=== PATIENT | male | born 1950 | race Asian ===

== ENCOUNTER 2016-12-18 12:12 | Emergency (ER) | payer MEDICARE, OTHER ==
[~2016-12-18] VITALS: Wt 90.2 kg
[~2016-12-18 12:12] MED LIST: ADV50050 INHALATION; ALBU18HF IH; ASPI-664 PO; AZIT250T94 PO; LEVO137T3 PO; LOSA25TA5 PO; MED4DP PO
[2016-12-18] MEDS ORDERED: LOSA25TA5 PO (13:26)
[2016-12-18] MEDS ORDERED: LEVO150T67 PO (13:26)
[2016-12-18] MEDS ORDERED: ASPI81TA3 PO (13:27)
[2016-12-18] MEDS ORDERED: TIOT18CA INHALATION (13:28)
[2016-12-18] MEDS ORDERED: NICARDipine HCL 30 MG CAPSULE PO ONE ×2 (13:30→15:00)
[2016-12-18] MEDS ORDERED: HYDROCODONE/APAP (10/325) TAB PO ONE (13:30)
--- NOTE | 2016-12-18 14:06 | RADRPT ---
PROCEDURE: CT Brain without. CLINICAL INDICATION: Headache. TECHNIQUE: A CT of the brain was performed on multidetector high-resolution CT scanner utilizing a xial sections from the skull base through the vertex without contrast. The scan was reviewed in sof t tissue brain and high frequency resolution bone algorithm windows. Images were reviewed on a high -resolution PACS workstation. One or more the following does reduction techniques were utilized: Aut omated exposure control, adjustment of the mA/ or kV according to patient's size, or use of iterativ e reconstruction technique. The exam CTDI = 43.77 mGy and the DLP = 630.2 mGy-cm. COMPARISON: None available. FINDINGS: The ventricles and sulci are mildly prominent indicative of volume loss. here is no intracranial hem orrhage, mass effect or midline shift. No abnormal intra-axial or extra-axial fluid collections are seen. The tolbert/white matter differentiation is preserved. There is prominent retrocerebellar CSF sp chace which may represent bijal cisterna magna versus arachnoid cyst. There are mild scattered foci of hypoattenuation in the white matter, which are nonspecific in etiol ogy but likely reflect chronic small vessel ischemic changes. There are mild intracranial vascular calcifications consistent with atherosclerosis. The visualized paranasal sinuses demonstrate mild to moderate mucosal thickening with small air-fluid levels in bilateral frontal sinuses. Partial opaci fication of the partially visualized right maxillary sinus is noted to The mastoid air cells are ess entially clear. IMPRESSION: 1. No acute intracranial hemorrhage, transcortical infarction or mass effect. 2. Mild intracranial atherosclerosis and chronic small vessel ischemic changes. 3. Mild generalized cerebral and cerebellar volume loss. 4. Mild to moderate paranasal sinus disease with associated air fluid levels, correlate for acute s inusitis. 5. retrocerebellar CSF space which may represent bijal cisterna magna versus arachnoid cyst. RPTAT: HH .Laney Pompa MD, MD Date Time Electronically viewed and signed by .Laney Pompa MD, MD on 12/18/2016 14:05 .N/
[2016-12-18] MEDS ORDERED: AMLO-218 PO (16:12)
[2016-12-18] MEDS ORDERED: LOSA50TA6 PO (16:12)
--- NOTE | 2016-12-18 16:16 | ERD ---
ER Documentation Chief Complaint Date/Time DATE: 12/18/16 TIME: 16:13 Chief Complaint HEADACHE WITH HIGH BP FOR 3 DAYS. NO NEURO DEFICIT. NO CP OR SOB HPI This is 66-year-old male who is here for headache with hypertension. The patient started new chemotherapy drug that has side effects of elevated blood pressure and headache. Headache is located in the occipital and vertex region. He has no focal neurological complaints no speech changes no visual change. Does not feel dizzy or have any blurry vision. He takes losartan hydrochlorothiazide, combination ROS All systems reviewed and are negative except as per history of present illness. Medications Home Meds Active Scripts Losartan Potassium* (Losartan Potassium*) 50 Mg Tablet, 50 MG PO DAILY, #30 TAB Prov:BRISA ARMANDO. DO 12/18/16 Amlodipine Besylate* (Norvasc*) 10 Mg Tablet, 10 MG PO DAILY, #30 TAB Prov:BRISA RAMANDO A. DO 12/18/16 Reported Medications Tiotropium [place]* (Spiriva*) 18 Mcg Cap.w.dev, 1 CAP INHALATION DAILY, #30 CAP 12/18/16 Aspirin* (Aspirin* Chew) 81 Mg Tab.chew, 81 MG PO DAILY, TAB.CHEW 12/18/16 Losartan Potassium* (Losartan Potassium*) 25 Mg Tablet, 25 MG PO DAILY, TAB 12/18/16 Levothyroxine Sodium* (Levothyroxine Sodium*) 150 Mcg Tablet, 150 MCG PO BEFORE BREAKFAST, #30 TAB 12/18/16 Salmeterol Xinaf-Fluticasone* (Advair*) 500/50 Diskus Inhaler, 1 INH INHALATION BID, #1 INHALER 09/22/15 Albuterol Sulfate* (Ventolin HFA*) 18 Gm Hfa.aer.ad, 2 PUFF IH Q4H Y for WHEEZING AND RESP DISTRESS, EA 02/07/15 Discontinued Reported Medications Levothyroxine Sodium* (Levothyroxine Sodium*) 137 Mcg Tablet, 137 MCG PO BEFORE BREAKFAST, #30 TAB 09/22/15 Aspirin* (Aspirin* EC) 81 Mg Tablet.dr, 81 MG PO DAILY, TAB 09/22/14 Discontinued Scripts Methylprednisolone* (Medrol* DOSE PACK) 4 Mg/Dose-Pack Tab.ds.pk, 4 MG PO . DIRECTED, #1 PACKET Prov:JULIO CESAR REINA 09/24/15 Azithromycin* (Zithromax*) 250 Mg Tab, 250 MG PO DAILY for 4 Days, TAB Prov:JULIO CESAR REINA 09/24/15 Allergies Allergies: Coded Allergies: No Known Allergy (Unverified , 12/18/16) PMhx/Soc History of Surgery: Yes (thyroidectomy 02/2015) Anesthesia Reaction: No Hx Neurological Disorder: No Hx Respiratory Disorders: Yes (asthma, copd) Hx Cardiac Disorders: Yes (HTN) Hx Psychiatric Problems: No Hx Miscellaneous Medical Probl: Yes (radiation therapy ff. thyroidectomy 03/20) Hx Alcohol Use: No Hx Substance Use: No Hx Tobacco Use: Yes (1 pack a day x 50 yrs, ) Smoking Status: Never smoker FmHx Family History: No coronary disease Physical Exam Vitals Vital Signs Date Time Temp Pulse Resp B/P Pulse Ox O2 Delivery O2 Flow Rate FiO2 12/18/16 12:15 98.9 62 20 213/98 99 Physical Exam Const: Well-developed, well-nourished Head: Atraumatic, normocephalic Eyes: Normal Conjunctiva, PERRLA, EOMI, normal sclera, no nystagmus ENT: Normal External Ears, Nose and Mouth, moist mucus membranes. Neck: Full range of motion. No meningismus, no lymphadenopathy. Resp: Clear to auscultation bilaterally, no wheezing, rhonchi, rales Cardio: Regular rate and rhythm, no murmurs, S1 S2 present Abd: Soft, non tender x 4, non distended. Normal bowel sounds, no guarding or rebound, no pulsitile abdominal masses or bruits Skin: No petechiae or rashes, no ecchymosis , no maculopapular rash Back: No midline or flank tenderness Ext: No cyanosis, or edema, FROM x 4, normal inspection, neurovascularly intact x 4 Neur: Awake and alert, STR 5/5 x 4, sensation intact x 4, no focal findings, cerebellum intact Psych: Normal Mood and Affect Results 24 hrs Current Medications Medications (Trade) Dose Ordered Sig/Angel Route PRN Reason Start Time Stop Time Status Last Admin Dose Admin Nicardipine HCl (Cardene) 30 mg ONCE ONCE PO 12/18/16 13:30 12/18/16 13:31 DC 4/14/17 13:16 Acetaminophen/ Hydrocodone Bitart ([place] (10/325)) 1 tab ONCE ONCE PO 12/18/16 13:30 12/18/16 13:31 DC 12/18/16 13:17 Nicardipine HCl (Cardene) 30 mg ONCE ONCE PO 12/18/16 15:00 12/18/16 15:01 DC 12/18/16 15:21 Procedures/MDM PROCEDURE: CT Brain without. CLINICAL INDICATION: Headache. TECHNIQUE: A CT of the brain was performed on multidetector high-resolution CT scanner utilizing axial sections from the skull base through the vertex without contrast. The scan was reviewed in soft tissue brain and high frequency resolution bone algorithm windows. Images were reviewed on a high- resolution PACS workstation. One or more the following does reduction techniques were utilized: Automated exposure control, adjustment of the mA/ or kV according to patient's size, or use of iterative reconstruction technique. The exam CTDI = 43.77 mGy and the DLP = 630.2 mGy-cm. COMPARISON: None available. FINDINGS: The ventricles and sulci are mildly prominent indicative of volume loss. here is no intracranial hemorrhage, mass effect or midline shift. No abnormal intra- axial or extra-axial fluid collections are seen. The tolbert/white matter differentiation is preserved. There is prominent retrocerebellar CSF space which may represent bijal cisterna magna versus arachnoid cyst. There are mild scattered foci of hypoattenuation in the white matter, which are nonspecific in etiology but likely reflect chronic small vessel ischemic changes. There are mild intracranial vascular calcifications consistent with atherosclerosis. The visualized paranasal sinuses demonstrate mild to moderate mucosal thickening with small air-fluid levels in bilateral frontal sinuses. Partial opacification of the partially visualized right maxillary sinus is noted to The mastoid air cells are essentially clear. IMPRESSION: 1. No acute intracranial hemorrhage, transcortical infarction or mass effect. 2. Mild intracranial atherosclerosis and chronic small vessel ischemic changes. 3. Mild generalized cerebral and cerebellar volume loss. 4. Mild to moderate paranasal sinus disease with associated air fluid levels, correlate for acute sinusitis. 5. retrocerebellar CSF space which may represent bijal cisterna magna versus arachnoid cyst. RPTAT: HH .Laney Pompa MD, MD Date Time Electronically viewed and signed by .Laney Pompa MD, MD on 12/18/2016 14: 05 .N/ CC: BRISA ARMANDO DO Patient received 2 doses of Cardene p.o. blood pressure is now 147/80 Because his cane so will respond well to this drug he should stay on it with better blood pressure control. We will stop his current medication and start Norvasc 10 mg with losartan 50 Departure Diagnosis: Primary Impression: Hypertension Hypertension type: unspecified secondary hypertension Qualified Code: I15.9 - Secondary hypertension Additional Impression: Headache Headache type: other vascular headache Qualified Code: G44.1 - Other vascular headache Condition: Stable Patient Instructions: Self-Care for Headaches, High Blood Pressure ( Hypertension) Referrals: JUDITH PALMER (PCP) BRISA ARMANDO DO Dec 18, 2016 16:16
[2016-12-18 17:13] VITALS: BP 133/79; PULSE 66; RESP 16; TEMP 99
== END 2016-12-18 17:14 | disposition home or self-care (01) ==
LOC: E/R 12:12
DX: I15.9 Secondary hypertension, unspecified (principal); G44.1 Vascular headache, not elsewhere classified; J44.9 Chronic obstructive pulmonary disease, unspecified; E03.9 Hypothyroidism, unspecified; Z79.82 Long term (current) use of aspirin; Z87.891 Personal history of nicotine dependence
CPT/HCPCS: 70450

== ENCOUNTER 2017-11-11 12:01 | Emergency (ER) | END 2017-11-11 17:28 | disposition home or self-care (01) ==

== ENCOUNTER 2018-02-06 11:57 | Emergency (ER) | END 2018-02-06 13:27 | disposition home or self-care (01) ==

== ENCOUNTER 2018-10-17 16:16 | Inpatient (IN) | payer MEDICARE, OTHER ==
[~2018-10-17] VITALS: Ht 180.3 cm; Wt 84.0 kg
[~2018-10-17 16:16] MED LIST changes: -ALBU18HF IH; +ALBU2.5V3 NEB; -ASPI-664 PO; -AZIT250T94 PO; +HYDR25TA6 PO; -LEVO137T3 PO; +LEVO150T64 PO; +LOSA100T15 PO; -LOSA25TA5 PO; -MED4DP PO; +ZOLP10TA5 PO
[2018-10-17] MEDS ORDERED: ACETAMINOPHEN 325 MG TAB PO STA (16:38)
[2018-10-17] MEDS ORDERED: CEFEPIME 2GM/50 ML (PMX) 50 ML IVPB STA (16:38)
[2018-10-17] MEDS ORDERED: SODIUM CHLORIDE 0.9% 1L BAG IV* STA (16:38)
[2018-10-17] MEDS ORDERED: METHYLPREDNISOLONE 125 MG INJ IV STA (16:41)
[2018-10-17] MEDS ORDERED: IPRATROPIUM (NEB) 0.5 MG/2.5 ML AMP INH STA (16:41)
[2018-10-17] MEDS ORDERED: ALBUTEROL 0.5% (NEB) 2.5 MG/0.5 ML AMP INH STA ×2 (16:41→18:39)
--- NOTE | 2018-10-17 16:48 | ERD ---
ER Documentation Chief Complaint Chief Complaint SEVERE SOB 1 TO 2 WORD SENTENCES INCREASING TODAY. 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 Denies chest pain or palpitations. No leg pain or swelling. Symptoms not improved by nebulized beta agonist at home. ROS All systems reviewed and are negative except as per history of present illness. Medications Home Meds Reported Medications Atenolol* (Atenolol*) 50 Mg Tablet, 50 MG PO DAILY, #30 TAB 10/17/18 Losartan Potassium* (Losartan Potassium*) 100 Mg Tablet, 100 MG PO DAILY, TAB 10/17/18 Salmeterol Xinaf-Fluticasone* (Advair*) 500/50 Diskus Inhaler, 1 INH INHALATION BID, #1 INHALER 10/17/18 Umeclidinium Fidelity (Incruse Ellipta) 62.5 Mcg Blst.w.dev, 62.5 MCG IH DAILY 10/17/18 Omeprazole* (Omeprazole*) 40 Mg Capsule.dr, 40 MG PO DAILY, #30 CAP 10/17/18 Levothyroxine Sodium* (Levothyroxine Sodium*) 125 Mcg Tablet, 125 MCG PO BEFORE BREAKFAST, #30 TAB 10/17/18 Hydrochlorothiazide* (Hydrochlorothiazide*) 25 Mg Tab, 25 MG PO DAILY, #30 TAB 10/17/18 Discontinued Reported Medications Zolpidem Tartrate* (Zolpidem Tartrate*) 10 Mg Tablet, 10 MG PO QHS PRN for INSOMNIA, #30 TAB 11/11/17 Hydrochlorothiazide* (Hydrochlorothiazide*) 25 Mg Tab, 25 MG PO DAILY, #30 TAB 11/11/17 Salmeterol Xinaf-Fluticasone* (Advair*) 500/50 Diskus Inhaler, 1 INH INHALATION BID, #1 INHALER 11/11/17 Losartan Potassium* (Losartan Potassium*) 100 Mg Tablet, 100 MG PO DAILY, TAB 11/11/17 Levothyroxine Sodium* (Levoxyl*) 150 Mcg Tablet, 150 MCG PO BEFORE BREAKFAST, #30 TAB 11/11/17 Discontinued Scripts Albuterol Sulfate* (Albuterol Sulfate* Neb) 0.083%-3 Ml Neb, 2.5 MG NEB Q4 PRN for SHORTNESS OF BREATH, #30 EA Prov:BRISA ARMANDO DO 11/11/17 Allergies Allergies: Coded Allergies: No Known Allergy (Unverified , 10/17/18) PMhx/Soc Reviewed in chart. As per HPI. History of Surgery: Yes (thyroidectomy 02/2015) Anesthesia Reaction: No Hx Neurological Disorder: No Hx Respiratory Disorders: Yes (asthma, copd) Hx Cardiac Disorders: Yes (HTN) Hx Psychiatric Problems: No Hx Miscellaneous Medical Probl: Yes (radiation therapy ff. thyroidectomy 03/20 mets to lungs) Hx Alcohol Use: No Hx Substance Use: No Hx Tobacco Use: Yes (2 pack a day x 50 yrs, quit) Smoking Status: Former smoker (2 packs a day for 50 years but quit 3 years ago and diagnosed with thyroid cancer) FmHx No sudden cardiac or stroke Physical Exam Vitals Vital Signs Date Temp Pulse Resp B/P (MAP) Pulse Ox O2 O2 Flow FiO2 Time Delivery Rate 10/17/18 96.9 118 14 150/71 98 18:42 (97) 10/17/18 121 14 165/74 98 18:18 (104) 10/17/18 105 96 30 17:46 10/17/18 101.2 125 33 189/113 98 BIPAP 17:39 (138) 10/17/18 102.4 16:56 10/17/18 102.4 126 33 169/69 99 BIPAP 16:42 (102) 10/17/18 102.8 110 34 129/69 89 16:21 (89) Physical Exam Const: Severe respiratory distress Head: Atraumatic Eyes: Normal Conjunctiva ENT: Normal External Ears, Nose and Mouth. Neck: Full range of motion. No JVD. No crepitus. No meningismus. Resp: Breath sounds markedly diminished bilaterally right greater than left with expiratory wheezing and prolonged expiratory phase. Cardio: Tachycardic. Regular rate and rhythm, no murmurs Abd: Soft, non tender, non distended. Normal bowel sounds Skin: No petechiae or rashes Back: No midline or flank tenderness Ext: No cyanosis, or edema. No calf swelling or tenderness. Neur: Awake and alert. No focal deficit. Psych: Anxious but not depressed. Result Diagram: 10/18/18 0709 10/18/18 0709 Results 24 hrs Laboratory Tests Test 10/17/18 16:33 10/17/18 16:35 10/17/18 16:40 10/17/18 18:39 POC Venous 2.0 mmol/L Lactate Bedside Glucose 212 mg/dL White Blood 10.9 10^3/ul Count Red Blood Count 4.49 10^6/ul Hemoglobin 13.6 g/dl Hematocrit 39.5 % Mean Corpuscular 88.0 fl Volume Mean Corpuscular 30.3 pg Hemoglobin Mean Corpuscular 34.4 g/dl Hemoglobin Sultana nt Red Cell 12.4 % Distribution Width Platelet Count 197 10^3/UL Mean Platelet 10.1 fl Volume Immature 0.900 % Granulocytes % Neutrophils % 80.8 % Lymphocytes % 9.2 % Monocytes % 8.8 % Eosinophils % 0.0 % Basophils % 0.3 % Nucleated Red 0.0 /100WBC Blood Cells % Immature 0.100 10^3/ul Granulocytes # Neutrophils # 8.8 10^3/ul Lymphocytes # 1.0 10^3/ul Monocytes # 1.0 10^3/ul Eosinophils # 0.0 10^3/ul Basophils # 0.0 10^3/ul Nucleated Red 0.0 10^3/ul Blood Cells # Prothrombin Time 13.2 Sec Prothrombin Time 1.0 Ratio INR 0.99 International Normalized Ratio Activated 44.0 Sec Partial Thrombop last Time Sodium Level 134 mmol/L Potassium Level 4.0 mmol/L Chloride Level 96 mmol/L Carbon Dioxide 24 mmol/L Level Anion Gap 14 Blood Urea 17 mg/dl Nitrogen Creatinine 1.33 mg/dl Est Glomerular 54 mL/min Filtrat Rate mL/min Glucose Level 230 mg/dl Calcium Level 10.1 mg/dl Total Bilirubin 0.6 mg/dl Direct Bilirubin 0.00 mg/dl Indirect 0.6 mg/dl Bilirubin Aspartate Amino 80 IU/L Transf (AST/SGOT ) Alanine 39 IU/L Aminotransferase (ALT/SGPT) Alkaline 84 IU/L Phosphatase Troponin I 0.021 ng/ml Total Protein 8.4 g/dl Albumin 4.3 g/dl Globulin 4.10 g/dl Albumin/Globulin 1.04 Ratio Thyroid 0.033 MIU/L Stimulating Hormone (TSH) Free Thyroxine 4.33 ug/ml Index Thyroxine (T4) 12.7 ug/dl Triiodothyronine 34.1 % (T3) Uptake Blood Gas Blood arterial Specimen Source Arterial Blood 10/17/2018 7:15:0 Date Drawn 0 PM Arterial Blood 7.417 pH (Temp corrected) Arterial Blood 30.1 mmhg pCO2 (Temp correct) Arterial Blood 146.9 mmHG pO2 (Temp corrected) Arterial Blood 19.0 mmol/L HCO3 Arterial Blood -4.4 mmol/L Base Excess Arterial Blood 98.7 mmHG Oxygen Saturatio n Lit Test ACCEPTAB Arterial Blood Right Radial Gas Puncture Site Arterial 0 % Blood Carboxyhem oglobin Arterial Blood 0.3 % Methemoglobin Blood Gas A-a O2 31.6 mmHg Differential Oxyhemoglobin 98.4 % Percent Blood Gas 37.0 C Temperature Blood Gas 20.0 Respiration Rate Blood Gas Actual 31 Respiration Rate Blood Gas MASK - BIPAP Modality FiO2 30.0 % Blood Gas 08/11 IPAP/EPAP Ratio Blood Gas MR Notified Whom Blood Gas 10/17/2018 7:20:4 Notified Time 1 PM Current Medications Medications Dose Sig/Angel Start Time Status Last (Trade) Ordered Route PRN Stop Time Admin Dose Reason Admin Sodium 2,590 ml BOLUS OVER 2 10/17/18 DC 10/17/18 Chloride HOURS STAT 16:38 16:55 (NS) IV* 10/17/18 16:41 650 mg ONCE STAT 10/17/18 DC 10/17/18 Acetaminophen PO 16:38 16:56 (Tylenol 10/17/18 16:41 Tab) Cefepime HCl 50 ml @ ONCE STAT 10/17/18 DC 10/17/18 100 mls/hr IVPB 16:38 16:55 10/17/18 17:07 Vancomycin 250 ml @ ONCE ONCE 10/17/18 DC 10/17/18 HCl 125 mls/hr IVPB 17:00 17:32 10/17/18 18:59 Albuterol 15 mg ONCE STAT 10/17/18 DC 10/17/18 (Proventil INH 16:41 17:19 0.5% (Neb)) 10/17/18 16:43 Ipratropium 1 mg ONCE STAT 10/17/18 DC 10/17/18 Fidelity INH 16:41 17:20 (Atrovent 10/17/18 16:43 0.02% (Neb)) 125 mg ONCE STAT 10/17/18 DC 10/17/18 Methylprednis IV 16:41 16:55 olone Sodium 10/17/18 16:43 Succinate (Solu-Medrol) Albuterol 15 mg ONCE STAT 10/17/18 DC 10/17/18 (Proventil INH 18:39 19:11 0.5% (Neb)) 10/17/18 18:42 Procedures/MDM DOCUMENTS REVIEWED: ED nurse, prior ED, prior records EKG: Time: 1637. Sinus tachycardia. Ventricular rate 129. Normal MI QRS. No acute ST segment elevation or depression. Right axis deviation. My Interpretation IMAGING: PROCEDURE: XR Chest. CLINICAL INDICATION: Chest pain TECHNIQUE: Single frontal view of the chest was obtained. COMPARISON: CR CHEST 09/22/2015 , 11/11/2017 FINDINGS: The heart is within normal limits. The thoracic aorta is calcified. There is a possible 1.4 cm left lower lobe nodular opacity. There are mild bibasilar linear atelectatic changes. There is no pleural effusion or pneumothorax. RPTAT: AA IMPRESSION: POSSIBLE NEW 1.4 CM LEFT LOWER LOBE NODULAR OPACITY. FURTHER EVALUATION WITH CT CHEST IS RECOMMENDED. Mild bibasilar linear atelectatic changes. Calcified aorta consistent with atherosclerotic disease. .Win Eubanks MD, MD Date Time Electronically viewed and signed by .Win Eubanks MD, on 10/17/2018 17:02 .S/ PROCEDURE: CTA Chest. CLINICAL INDICATION: Shortness of breath, lung mass, history of thyroid cancer, rule out pulmonary embolism. TECHNIQUE: Direct spiral axial sections were obtained from the thoracic inlet to the upper abdomen with the use of 100 cc of Visipaque 320 nonionic intravenous contrast material. Coronal and sagittal reformations were obtained. 3D volume rendered (or MIP) imaging was performed. DICOM images are available. The images were reviewed on a PACS workstation. CTDIvol: 15.11 mGy. DLP: 658.40 mGy-cm. One or more of the following dose reduction techniques were used: - Automated exposure control. - Adjustment of the mA and/or kV according to patient size. - Use of iterative reconstruction technique. COMPARISON: Chest x-ray dated 10/17/2018. FINDINGS: There is no pulmonary embolism. The main pulmonary artery is normal in caliber. There is no aortic aneurysm. There are mild arterial calcifications. The heart is not enlarged. There is no pericardial effusion. There are moderate to severe emphysematous changes. Tree in bud nodularity is noted in the left lower lobe, and to a lesser degree in the right lower lobe. There are patchy consolidative opacities in the left lower lobe. A calcified granuloma is identified in the left lower lobe. There is a 6 mm nodule in the right lower lobe. Mild atelectatic changes are also noted in the right lower lobe. There is scattered patchy scarring in both lungs. No pleural effusion or pneumothorax is identified. The thyroid gland is absent. There are mildly enlarged left peribronchial, subcarinal, and bilateral hilar lymph nodes. The trachea and mainstem bronchi are patent. Limited evaluation of the upper abdomen is unremarkable. The patient is status post cholecystectomy. IMPRESSION: No pulmonary embolism. Moderate to severe emphysematous changes. Tree in bud nodularity in the left lower lobe, and to a lesser degree in the right lower lobe, consistent with infectious or inflammatory bronchiolitis. Patchy consolidative opacities in the left lower lobe, suspicious for pneumonia. 6 mm nodule in the right lower lobe. A repeat CT scan should be obtained 6-12 months to reassess this finding. Status post thyroidectomy. Mildly enlarged left peribronchial, subcarinal, and bilateral hilar lymph nodes, nonspecific. Mild atherosclerotic arterial calcifications. RPTAT: HTAR .Kentrell Wong MD, MD Date Time Electronically viewed and signed by .Kentrell Wong MD, MD on 10/17/2018 22:52 .R/ REEXAMINATION/REEVALUATION: Time: 18:30. No further SOB. Significantly improved but still with mild breath sounds and expiratory wheezing. 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 CBC reveals mild leukocytosis and borderline anemia. Chemistry significant for mild hyponatremia, hyperglycemia and elevated creatinine of 1.33. No ischemic EKG changes, chest pain, elevated troponin or acute coronary syndrome. Chest x-ray reveals a nodular left lower lobe opacity which is new and a CT will be ordered for further evaluation. Patient with a history of thyroid cancer but considering the patient's presentation of fever and cough pulmonary embolism is unlikely. Multiple criteria for systemic inflammatory response syndrome including fever, tachycardia and tachypnea. Normal saline 30 cc/kg fluid bolus, antibiotics prior to cultures administered. Initial lactate 2.0 mmol/L and repeat 1.8 mmol/L. CT CHest negative for PE but consistent with LLL infiltrate and pneumonia. No elevated lactate, hypotension or criteria for severe sepsis or septic shock. Acute respiratory failure and bronchospasm improved with non-invasive positive pressure ventilation and nebulized beta agonists. Admit to telemetry. Critical Care Time: 35 minutes Treatments/Evaluations: Close monitoring and treatment of unstable vital signs, cardiorespiratory, and neurologic status, while maintaining tight balance of fluid, respiratory, and cardiac interventions. This includes the administration of emergency fluid management while maintaining close respiratory support as well as the provision of immediate and broad-spectrum antibiotic therapy, while performing a simultaneous assessment for possible sources in order to direct targeted therapy. This time includes discussing the case with the patient and the patient's family. This time also includes the consideration for invasive and chemical support to prevent cardiopulmonary collapse. This time does not include all procedures stated elsewhere in this record. This time also includes reviewing old records, labs and radiological studies. This time includes examining and re-examining the patient. Additionally, this time also includes arranging care with admitting and consulting physicians. CALLS/CONSULTS: Time: 18:15, Dr. Canales. PATIENT CARE TRANSITIONED: Time: 18:40, Dr. Canales. Counseled patient and family regarding diagnosis, diagnostic results and plan for admission. Departure Diagnosis: Primary Impression: Acute respiratory failure Respiratory failure complication: unspecified whether with hypoxia or hypercapnia Qualified Codes: J96.00 - Acute respiratory failure, unspecified whether with hypoxia or hypercapnia Additional Impressions: COPD with acute exacerbation SIRS (systemic inflammatory response syndrome) Pneumonia Pneumonia type: due to unspecified organism Laterality: left Lung location: lower lobe of lung Qualified Codes: J18.1 - Lobar pneumonia, unspecified organism H/O malignant neoplasm of thyroid Condition: Serious MALISSA CHAN MD Oct 17, 2018 16:48
[2018-10-17] MEDS ORDERED: HYDR25TA6 PO (16:59)
[2018-10-17] MEDS ORDERED: LEVO125T7 PO (17:00)
[2018-10-17] MEDS ORDERED: UMEC62.5 IH (17:00)
[2018-10-17] MEDS ORDERED: OMEP40CA6 PO (17:00)
[2018-10-17] MEDS ORDERED: VANCOMYCIN 1 GM (PMX) 250 ML IVPB ONE (17:00)
[2018-10-17] MEDS ORDERED: ADV50050 INHALATION (17:01)
[2018-10-17] MEDS ORDERED: ATEN50TA PO (17:01)
[2018-10-17] MEDS ORDERED: LOSA100T15 PO (17:01)
[2018-10-17] MEDS ORDERED: ACETAMINOPHEN 325 MG TAB PO PRN (19:00)
[2018-10-17] MEDS ORDERED: ONDANSETRON 4 MG INJ IV PRN (19:00)
[2018-10-17] MEDS ORDERED: SOD CHLORIDE 0.9% 100 ML ONE (21:22)
[2018-10-17] MEDS ORDERED: IODIXANOL LOCM 100 ML BTL ONE (21:22)
[2018-10-18] VITALS (15 sets, daily range): BP systolic 133–157; BP diastolic 71–82; PULSE 68–103; RESP 20–22; Ht 180.3 cm; Wt 84.0 kg
[2018-10-18] MEDS ORDERED: LEVOFLOXACIN 750MG/D5W (PMX) 150 ML IVPB SCH (03:00)
[2018-10-18] MEDS ORDERED: ALBUTEROL/IPRATROPIUM (NEB) 3 ML AMP HHN PRN (03:00)
[2018-10-18] MEDS: 1/2 NS + KCL 20 MEQ 1,000 ML IV SCH ×2 (03:21→23:22)
[2018-10-18] MEDS: IPRATROPIUM (NEB) 0.5 MG/2.5 ML AMP HHN SCH ×5 (05:00→20:28)
[2018-10-18] MEDS: METHYLPREDNISOLONE 40 MG INJ IV SCH ×4 (05:44→23:22)
[2018-10-18] MEDS ORDERED: PANTOPRAZOLE 40 MG INJ IV SCH (06:00)
[2018-10-18] MEDS ORDERED: LEVOTHYROXINE 25 MCG TAB PO SCH (09:00)
[2018-10-18] MEDS: ENOXAPARIN 40 MG/0.4 ML SYG SC SCH (09:43)
[2018-10-18] MEDS ORDERED: LEVOTHYROXINE 125 MCG TAB PO ONE (10:00)
[2018-10-18] MEDS: ATENOLOL 50 MG TAB PO SCH (10:08)
[2018-10-18] MEDS: HYDROCHLOROTHIAZIDE 25 MG TAB PO SCH (10:09)
[2018-10-18] MEDS: LOSARTAN 50 MG TAB PO SCH (10:09)
--- NOTE | 2018-10-18 12:29 | HP ---
Date/Time of Note Date/Time of Note DATE: 10/18/18 TIME: 12:26 Assessment/Plan VTE Prophylaxis Risk score (from [facility] [place])>0 risk: 3 SCD applied (from Ns): Yes Pharmacological prophylaxis: LMWH Lines/Catheters IV Catheter Type (from [facility]): [place] Urinary Cath still in place: No Assessment/Plan Assessment/Plan -Acute respiratory failure requiring BiPAP, continue oxygen supplementation BiPAP as needed bronchodilators. -Left lower lobe healthcare acquired pneumonia, continue antibiotic. -COPD exacerbation, continue steroids -Thyroid Cancer with metastasis to the lungs, status post thyroidectomy. Continue current dose of levothyroxine. Patient follows with oncologist and utility tech at [facility]. -Hypertension -Prediabetes Further recommendations based on clinical course. Plan of care discussed with Dr. Canales Result Diagram: 10/18/18 0709 10/18/18 0709 Results 24hrs Laboratory Tests Test 10/17/18 16:33 10/17/18 16:35 10/17/18 16:40 10/17/18 18:39 POC Venous 2.0 Lactate Bedside Glucose 212 White Blood 10.9 #H Count Red Blood Count 4.49 L Hemoglobin 13.6 L Hematocrit 39.5 L Mean Corpuscular 88.0 Volume Mean Corpuscular 30.3 Hemoglobin Mean Corpuscular 34.4 Hemoglobin Sultana nt Red Cell 12.4 Distribution Width Platelet Count 197 Mean Platelet 10.1 Volume Immature 0.900 H Granulocytes % Neutrophils % 80.8 H Lymphocytes % 9.2 L Monocytes % 8.8 Eosinophils % 0.0 Basophils % 0.3 Nucleated Red 0.0 Blood Cells % Immature 0.100 H Granulocytes # Neutrophils # 8.8 H Lymphocytes # 1.0 Monocytes # 1.0 H Eosinophils # 0.0 Basophils # 0.0 Nucleated Red 0.0 Blood Cells # Prothrombin Time 13.2 Prothrombin Time 1.0 Ratio INR 0.99 International Normalized Ratio Activated 44.0 H Partial Thrombop last Time Sodium Level 134 L Potassium Level 4.0 Chloride Level 96 L Carbon Dioxide 24 Level Anion Gap 14 H Blood Urea 17 Nitrogen Creatinine 1.33 H Est Glomerular 54 L Filtrat Rate mL/min Glucose Level 230 H Calcium Level 10.1 Total Bilirubin 0.6 Direct Bilirubin 0.00 Indirect 0.6 Bilirubin Aspartate Amino 80 H Transf (AST/SGOT ) Alanine 39 Aminotransferase (ALT/SGPT) Alkaline 84 Phosphatase Troponin I 0.021 Total Protein 8.4 H Albumin 4.3 Globulin 4.10 H Albumin/Globulin 1.04 Ratio Thyroid 0.033 L Stimulating Hormone (TSH) Free Thyroxine 4.33 H Index Thyroxine (T4) 12.7 H Triiodothyronine 34.1 (T3) Uptake Blood Gas Blood arterial Specimen Source Arterial Blood 10/17/2018 7:15: Date Drawn 00 PM Arterial Blood 7.417 pH (Temp corrected) Arterial Blood 30.1 L pCO2 (Temp correct) Arterial Blood 146.9 H pO2 (Temp corrected) Arterial Blood 19.0 L HCO3 Arterial Blood -4.4 L Base Excess Arterial Blood 98.7 H Oxygen Saturatio n Lit Test ACCEPTAB Arterial Blood Right Radial Gas Puncture Site Arterial 0 Blood Carboxyhem oglobin Arterial Blood 0.3 Methemoglobin Blood Gas A-a O2 31.6 H Differential Oxyhemoglobin 98.4 Percent Blood Gas 37.0 Temperature Blood Gas 20.0 Respiration Rate Blood Gas Actual 31 Respiration Rate Blood Gas MASK - BIPAP Modality FiO2 30.0 Blood Gas 12 IPAP/EPAP Ratio Blood Gas MR Notified Whom Blood Gas 10/17/2018 7:20: Notified Time 41 PM Test 10/17/18 19:45 10/17/18 20:20 10/17/18 21:05 10/17/18 21:30 POC Venous 1.8 Lactate Sodium Level 135 Potassium Level 3.7 Chloride Level 105 Carbon Dioxide 18 L Level Anion Gap 12 Blood Urea 14 Nitrogen Creatinine 1.25 H Est Glomerular 58 L Filtrat Rate mL/min Glucose Level 255 H Calcium Level 8.9 Urine Color YELLOW Urine Clarity CLEAR Urine pH 6.0 Urine Specific 1.009 Cameron Urine Ketones 1+ H Urine Nitrite NEGATIVE Urine Bilirubin NEGATIVE Urine 1+ H Urobilinogen Urine Leukocyte NEGATIVE Esterase Urine 0 Microscopic RBC Urine 1 Microscopic WBC Urine Bacteria FEW A Urine Hemoglobin NEGATIVE Urine Glucose 3+ H Urine Total 1+ H Protein Lactic Acid 5.9 *H Level Test 10/18/18 05:00 10/18/18 07:09 Blood Gas Blood arterial Specimen Source Arterial Blood 10/18/2018 5:19: Date Drawn 17 AM Arterial Blood 7.405 pH (Temp corrected) Arterial Blood 34.1 L pCO2 (Temp correct) Arterial Blood 178.0 H pO2 (Temp corrected) Arterial Blood 20.9 L HCO3 Arterial Blood -3.1 L Base Excess Arterial Blood 99.1 H Oxygen Saturatio n Lit Test ACCEPTAB Arterial Blood Right Radial Gas Puncture Site Arterial 0.1 Blood Carboxyhem oglobin Arterial Blood 0.3 Methemoglobin Oxyhemoglobin 98.7 Percent Blood Gas 37.0 Temperature Blood Gas 20.0 Respiration Rate Blood Gas Actual 26 Respiration Rate Blood Gas MASK - BIPAP Modality FiO2 30.0 Blood Gas 12/6 IPAP/EPAP Ratio Blood Gas NATALIA OLIVER Critical Value Read Back Blood Gas BR Notified Whom Blood Gas 10/18/2018 5:28: Notified Time 24 AM White Blood 8.8 Count Red Blood Count 3.90 L Hemoglobin 11.8 L Hematocrit 34.6 L Mean Corpuscular 88.7 Volume Mean Corpuscular 30.3 Hemoglobin Mean Corpuscular 34.1 Hemoglobin Sultana nt Red Cell 12.5 Distribution Width Platelet Count 174 Mean Platelet 10.5 H Volume Immature 1.600 H Granulocytes % Neutrophils % 86.9 H Lymphocytes % 7.2 L Monocytes % 4.1 Eosinophils % 0.0 Basophils % 0.2 Nucleated Red 0.0 Blood Cells % Immature 0.140 H Granulocytes # Neutrophils # 7.6 H Lymphocytes # 0.6 L Monocytes # 0.4 Eosinophils # 0.0 Basophils # 0.0 Nucleated Red 0.0 Blood Cells # Sodium Level 136 Potassium Level 3.9 Chloride Level 107 Carbon Dioxide 23 Level Anion Gap 6 Blood Urea 16 Nitrogen Creatinine 0.99 Est Glomerular > 60 Filtrat Rate mL/min Glucose Level 274 H Calcium Level 9.2 HPI/ROS Admit Date/Time Admit Date/Time Oct 17, 2018 at 18:49 Hx of Present Illness The patient is a 68-year-old male with history of thyroid cancer with metastasis to the lungs, status post thyroidectomy patient follows at the [facility] with oncology and endocrinology siebel consultant patient had last appointment and the beginning of this month with utility tech. Patient with history of hypertension, COPD, and prediabetes presented to the emergency room with complaints of shortness of breath productive cough with green sputum, wheezing fever and chills. Patient denies any chest pain denies any nausea vomiting. Patient underwent CT of the chest which was negative for any pulmonary embolism however revealed patchy consolidative opacities in the left lower lobe suspicious for pneumonia, nodularity in the left lower lobe in the right lower lobe consistent with infectious or inflammatory bronchiolitis, and 6 mm nodule in the right lower lobe, moderate to severe emphysematous changes. Patient was placed on BiPAP machine and started on antibiotic. Patient is admitted for further evaluation and management to telemetry floor. ROS 12 point review of system is negative except for what mentioned in HPI PMH/Family/Social Past Medical History Medical History: hypertension, other (Thyroid cancer, COPD) Medications Current Medications Ondansetron HCl (Zofran Inj) 4 mg ER BRIDGE PRN IV NAUSEA/VOMITING; Start 10/17/18 at 19:00; Stop 10/18/18 at 18:59 Acetaminophen (Tylenol Tab) 650 mg ER BRIDGE PRN PO .MILD PAIN 1-3 OR TEMP; Start 10/17/18 at 19:00; Stop 10/18/18 at 18:59 Ipratropium [place] (Atrovent 0.02% (Neb)) 0.5 mg Q4H RESP THERAPY HHN Last administered on 10/18/18at 08:43; Admin Dose 0.5 MG; Start 10/18/18 at 05:00 Albuterol/ Ipratropium (Duoneb) 3 ml Q4H RESP THERAPY PRN HHN SHORTNESS OF BREATH; Start 10/18/18 at 03:00 Levofloxacin/ Dextrose 150 ml @ 100 mls/hr Q24H IVPB Last administered on 10/18/18at 03:22; Admin Dose 100 MLS/HR; Start 10/18/18 at 03:00 Enoxaparin Sodium (Lovenox) 40 mg DAILY SC Last administered on 10/18/18at 09:43; Admin Dose 40 MG; Start 10/18/18 at 09:00 Pantoprazole (Protonix Iv) 40 mg DAILY@06 IV Last administered on 10/18/18at 05:44; Admin Dose 40 MG; Start 10/18/18 at 06:00 Potassium Chloride/Sodium Chloride 1,000 ml @ 50 mls/hr Q20H IV Last administered on 10/18/18 03:21; Admin Dose 75 MLS/HR; Start 10/18/18 at 03:00 Methylprednisolone Sodium Succinate (Solu-Medrol) 40 mg Q6 IV Last administered on 10/18/18at 11:59; Admin Dose 40 MG; Start 10/18/18 at 06:00 Levothyroxine Sodium (Synthroid) 125 mcg DAILY@06 PO ; Start 10/19/18 at 06:00 Atenolol (Tenormin) 50 mg DAILY PO Last administered on 10/18/18at 10:08; Admin Dose 50 MG; Start 10/18/18 at 10:00 Hydrochlorothiazide (Hydrochlorothiazide) 25 mg DAILY PO Last administered on 10/18/18at 10:09; Admin Dose 25 MG; Start 10/18/18 at 10:00 Losartan Potassium (Cozaar) 100 mg DAILY PO Last administered on 10/18/18at 10:09; Admin Dose 100 MG; Start 10/18/18 at 10:00 Coded Allergies: No Known Allergy (Unverified , 10/17/18) Past Surgical History Past Surgical Hx: cholecystectomy, other (Status post thyroidectomy) Family History Significant Family History: no pertinent family hx, other Social History Alcohol Use: none Smoking Status: Former smoker Drug Use: none Exam/Review of Systems Vital Signs Vitals Vital Signs Date Temp Pulse Resp B/P (MAP) Pulse Ox O2 O2 Flow FiO2 Time Delivery Rate 10/18/18 97.6 80 20 145/71 92 Nasal 11:06 (95) Cannula 10/18/18 3.0 08:44 10/18/18 30 05:09 Intake and Output 10/17/18 10/17/18 10/18/18 1515:00 23:00 07:00 IntakeIntake Total 50 ml 250 ml BalanceBalance 50 ml 250 ml Exam Constitutional: alert, oriented Head: normocephalic Neck: supple Respiratory: diminished breath sounds Cardiovascular: regular rate and rhythm Gastrointestinal: soft, non-tender Musculoskeletal: nl extremities to inspection Extremities: normal pulses Neurological: nl mental status Skin: nl JULIO CESAR Guallpa Oct 18, 2018 12:29
[2018-10-18] MEDS: TIOTROPIUM 18 MCG CAPSULE INHA DEV INH SCH (15:02)
[2018-10-18] MEDS: CEFEPIME 1GM/50 ML (PMX) 50 ML IVPB SCH (15:03)
--- NOTE | 2018-10-18 15:11 | CONS ---
DATE OF ADMISSION: 10/17/2018 DATE OF CONSULTATION: 10/18/2018 TYPE OF CONSULTATION: Infectious disease. REASON FOR CONSULTATION: Antibiotic management. HISTORY OF PRESENT ILLNESS: Contreras Bella is a 68-year-old male who comes into the emerge ncy room with severe shortness of breath and is being seen for antibiotic management. His past problems include: 1. Hypertension. 2. Thyroid cancer with metastases to the lungs. 3. Status post thyroidectomy. 4. COPD. 5. Status post radiation therapy. Acutely, the patient comes in with a 5-day history of increasing shortness of breath, wheezing, cough productive of greenish sputum, fever and chills. The patient is on a number of different medication s. PAST MEDICAL HISTORY: Operations as outlined. FAMILY HISTORY: Noncontributory. SOCIAL HISTORY: He smoked 2 packs of cigarettes a day for 50 years, quit 3 years ago when he was antelmo gnosed with thyroid cancer. ALLERGIES: NONE TO PENICILLIN, SULFA OR FOODS. MEDICATIONS: Per chart. REVIEW OF SYSTEMS: Noncontributory. PHYSICAL EXAMINATION: GENERAL: The patient is on BiPAP as well as bronchodilators. VITAL SIGNS: His T-max was 102.8. As noted, he was in severe respiratory distress, now on BiPAP. SKIN: Without generalized rash. HEENT: Within normal limits. NECK: Supple. LYMPH NODES: None palpable. CHEST: Decreased breath sounds at the bases with expiratory wheezing. HEART: Tachycardic, regular rhythm. ABDOMEN: Soft, nontender without organosplenomegaly or masses. EXTREMITIES: Without cyanosis, clubbing or edema. RECTAL AND GENITAL: Deferred. NEUROLOGIC: No focal neurological abnormalities. ANCILLARY LABORATORY DATA: White count on admission 10.9, H and H of 13.6 and 39.5, platelet count 1 97. BUN and creatinine is 17/1.33, glucose of 230. He has 81% neutrophils with a shift to the left. HOSPITAL COURSE: The patient is on as noted BiPAP, placed on vancomycin and cefepime. His chest x-r ay showed possible 1.4 cm left lower lobe nodular opacity, mild bibasilar linear atelectatic changes. No pleural effusions or pneumothorax. CT scan of the chest was recommended which showed no pulmona ry emboli, severe emphysematous changes, tree-in-bud nodularity in left lower lobe and to a lesser de gree in right lower lobe consistent with infectious or inflammatory bronchiolitis, patchy consolidati ve opacities in the left lower lobe suspicious for pneumonia. A 6 mm nodule in the right lower lobe, status post thyroidectomy, mildly enlarged left peribronchial, subcarinal and bilateral hilar lymph nodes, nonspecific and mild atherosclerotic arterial calcifications. IMPRESSION AND PLAN: The patient has acute respiratory failure requiring BiPAP. He has left lower l obe healthcare-acquired pneumonia. The patient was on cefepime and vancomycin, now is on Levaquin. We are going to change that back to cefepime. I will dictate my findings to Dr. Rodriguez and nurse Dev spangler. Dictated By: DADA CHACKO MD, JD/ANTONIA Conf#: [id number] DID#: [id number] CC: SAMEERA RODRIGUEZ MD;*EndCC*
[2018-10-18] MEDS: GUAIFENESIN/DM 5ML CUP PO PRN (18:01)
[2018-10-18] MEDS: ARFORMOTEROL TARTRATE 15MCG/2 ML AMP INH SCH (19:39)
[2018-10-18] MEDS: BUDESONIDE (NEB) 0.5MG/2ML AMP INH SCH (19:45)
[2018-10-18] MEDS ORDERED: NON-FORMULARY/PATIENT OWN MED (Salmeterol Xinaf-Fluticasone* (Advair*) 1 INH) INHALATION SCH (21:00)
[2018-10-19] VITALS (9 sets, daily range): BP systolic 138–159; BP diastolic 66–80; PULSE 59–116; RESP 16–20
[2018-10-19] MEDS: CEFEPIME 1GM/50 ML (PMX) 50 ML IVPB SCH ×3 (00:58→20:11)
[2018-10-19] MEDS: IPRATROPIUM (NEB) 0.5 MG/2.5 ML AMP HHN SCH ×6 (02:02→20:13)
[2018-10-19] MEDS: PANTOPRAZOLE (EC) 40 MG TAB PO SCH (05:08)
[2018-10-19] MEDS: LEVOTHYROXINE 125 MCG TAB PO SCH (05:08)
[2018-10-19] MEDS: METHYLPREDNISOLONE 40 MG INJ IV SCH ×3 (05:08→17:19)
[2018-10-19] MEDS ORDERED: LEVOTHYROXINE 125 MCG TAB PO SCH (07:00)
[2018-10-19] MEDS: TIOTROPIUM 18 MCG CAPSULE INHA DEV INH SCH (08:21)
[2018-10-19] MEDS: LOSARTAN 50 MG TAB PO SCH (08:21)
[2018-10-19] MEDS: ATENOLOL 50 MG TAB PO SCH (08:21)
[2018-10-19] MEDS: HYDROCHLOROTHIAZIDE 25 MG TAB PO SCH (08:22)
[2018-10-19] MEDS: ENOXAPARIN 40 MG/0.4 ML SYG SC SCH (08:34)
[2018-10-19] MEDS: ARFORMOTEROL TARTRATE 15MCG/2 ML AMP INH SCH ×3 (09:00→20:13)
[2018-10-19] MEDS ORDERED: NON-FORMULARY/PATIENT OWN MED (Omeprazole* 40 MG) PO SCH (09:00)
[2018-10-19] MEDS ORDERED: HYDROCHLOROTHIAZIDE 25 MG TAB PO SCH (09:00)
[2018-10-19] MEDS ORDERED: LOSARTAN 50 MG TAB PO SCH (09:00)
[2018-10-19] MEDS ORDERED: ATENOLOL 50 MG TAB PO SCH (09:00)
[2018-10-19] MEDS: BUDESONIDE (NEB) 0.5MG/2ML AMP INH SCH ×3 (09:53→20:14)
[2018-10-19] MEDS: GUAIFENESIN/DM 5ML CUP PO PRN ×2 (11:36→18:28)
--- NOTE | 2018-10-19 12:29 | CONS ---
Assessment/Plan Assessment/Plan Hospital Course (Demo Recall) trimt patient is awake slightly dyspneic on 3 L nasal cannula no fevers overnight he is in no distress WBC 11.7 H&H 12.6 and 37.8 platelets 274 neutrophils 81.7 BUN 27 creatinine 1.10 Microbiology: All cultures have been negative CT of the chest on admission revealed no pulmonary embolism moderate to severe emphysematous changes right lower lobe infectious or inflammatory bronchiolitis. Patchy consolidative opacities in the left lower lobe suspicious for pneumonia. 6 mm nodule in the right lower lobe. Antimicrobials: Cefepime Physical examination: Well-nourished well-developed elderly man who is awake in no distress. Head atraumatic normocephalic sclera nonicteric. Neck is supple. Chest rise symmetrical. Breath sounds diminished bases. Heart: S1-S2. Abdomen soft, bowel sounds present. Extremities without cyanosis. Assessment: 1. Acute hypoxemic respiratory failure 2. Pneumonia 3. Pulmonary nodule rule out malignancy 4. Thyroid cancer with reported lung metastasis status post thyroidectomy and radiation therapy 5. COPD Plan: Patient is clinically stable, continue present care, add Zithromax, consider pulmonary evaluation Consultation Date/Type/Reason Admit Date/Time Oct 17, 2018 at 18:49 Initial Consult Date Type of Consult id Date/Time of Note DATE: 10/19/18 TIME: 12:29 Exam/Review of Systems Exam Vitals Vital Signs Date Temp Pulse Resp B/P (MAP) Pulse Ox O2 O2 Flow FiO2 Time Delivery Rate 10/19/18 68 12:17 10/19/18 97.6 16 155/76 98 11:28 (102) 10/19/18 Nasal 3.0 07:52 Cannula 10/18/18 30 05:09 Intake and Output 10/18/18 10/18/18 10/19/18 1515:00 23:00 07:00 IntakeIntake Total 600 ml 950 ml BalanceBalance 600 ml 950 ml Results Result Diagram: 10/19/1848 10/19/1848 Results 24hrs Laboratory Tests Test 10/19/18 09:48 White Blood Count 11.7 #H Red Blood Count 4.24 L Hemoglobin 12.6 L Hematocrit 37.8 L Mean Corpuscular Volume 89.2 Mean Corpuscular Hemoglobin 29.7 Mean Corpuscular Hemoglobin Concent 33.3 Red Cell Distribution Width 13.0 Platelet Count 274 # Mean Platelet Volume 10.6 H Immature Granulocytes % 6.600 H Neutrophils % 81.7 H Lymphocytes % 7.5 L Monocytes % 3.9 Eosinophils % 0.0 Basophils % 0.3 Nucleated Red Blood Cells % 0.0 Immature Granulocytes # 0.770 H Neutrophils # 9.5 H Lymphocytes # 0.9 Monocytes # 0.5 Eosinophils # 0.0 Basophils # 0.0 Nucleated Red Blood Cells # 0.0 Sodium Level 134 L Potassium Level 4.0 Chloride Level 102 Carbon Dioxide Level 23 Anion Gap 9 Blood Urea Nitrogen 27 #H Creatinine 1.10 Est Glomerular Filtrat Rate mL/min > 60 Glucose Level 263 H Calcium Level 9.1 Medications Medication Current Medications Ipratropium [place] (Atrovent 0.02% (Neb)) 0.5 mg Q4H RESP THERAPY HHN Last administered on 10/19/18 11:53; Admin Dose 0.5 MG; Start 10/18/18 at 05:00 Albuterol/ Ipratropium (Duoneb) 3 ml Q4H RESP THERAPY PRN HHN SHORTNESS OF BREATH; Start 10/18/18 at 03:00 Enoxaparin Sodium (Lovenox) 40 mg DAILY SC Last administered on 10/19/18 08:34; Admin Dose 40 MG; Start 10/18/18 at 09:00 Potassium Chloride/Sodium Chloride 1,000 ml @ 50 mls/hr Q20H IV Last administered on 10/18/18 23:22; Admin Dose 50 MLS/HR; Start 10/18/18 at 03:00 Methylprednisolone Sodium Succinate (Solu-Medrol) 40 mg Q6 IV Last administered on 10/19/18 11:36; Admin Dose 40 MG; Start 10/18/18 at 06:00 Levothyroxine Sodium (Synthroid) 125 mcg DAILY@06 PO Last administered on 10/19/18 05:08; Admin Dose 125 MCG; Start 10/19/18 at 06:00 Atenolol (Tenormin) 50 mg DAILY PO Last administered on 10/19/18 08:21; Admin Dose 50 MG; Start 10/18/18 at 10:00 Hydrochlorothiazide (Hydrochlorothiazide) 25 mg DAILY PO Last administered on 10/19/18 08:22; Admin Dose 25 MG; Start 10/18/18 at 10:00 Losartan Potassium (Cozaar) 100 mg DAILY PO Last administered on 10/19/18 08:21; Admin Dose 100 MG; Start 10/18/18 at 10:00 Guaifenesin/ Dextromethorphan (Robitussin Dm Liquid Cup) 10 ml Q4H PRN PO COUGH Last administered on 10/19/18 11:36; Admin Dose 10 ML; Start 10/18/18 at 13:30 Tiotropium [place] (Spiriva) 1 inh DAILY INH Last administered on 10/19/18 08:21; Admin Dose 1 INH; Start 10/18/18 at 14:30 Arformoterol Tartrate (Brovana (Neb)) 2 ml BID RESP THERAPY INH Last administered on 10/19/18 12:05; Admin Dose 2 ML; Start 10/18/18 at 20:00 Budesonide (Pulmicort (Neb)) 0.5 mg Q12H RESP THERAPY INH Last administered on 10/19/18 11:53; Admin Dose 0.5 MG; Start 10/18/18 at 20:00 Cefepime HCl 50 ml @ 100 mls/hr Q12 IVPB Last administered on 10/19/18 08:22; Admin Dose 100 MLS/HR; Start 10/18/18 at 15:30 Pantoprazole (Protonix Tab) 40 mg DAILY@06 PO Last administered on 10/19/18 05:08; Admin Dose 40 MG; Start 10/19/18 at 06:00 ROSA SANDRA NP Oct 19, 2018 12:29
--- NOTE | 2018-10-19 12:49 | PN ---
Date/Time of Note Date/Time of Note DATE: 10/19/18 TIME: 12:44 Assessment/Plan VTE Prophylaxis Risk score (from Ns)>0 risk: 5 SCD applied (from Ns): Yes Pharmacological prophylaxis: LMWH Lines/Catheters IV Catheter Type (from Nrs): Peripheral IV Urinary Cath still in place: No Assessment/Plan Hospital Course Patient stated he feels slightly better continues on supplemental oxygen complains of productive cough. Elevated blood sugar we will check hemoglobin A1c we will add NovoLog per sliding scale. Assessment/Plan -Acute respiratory failure requiring BiPAP, continue oxygen supplementation BiPAP as needed bronchodilators. Dr. Bustos is asked to see patient in pulmonology consultation. -Left lower lobe healthcare acquired pneumonia, continue varix per ID. Dr. Smith is following in infection disease consultation. -COPD exacerbation, continue steroids -Thyroid Cancer with metastasis to the lungs, status post thyroidectomy. Continue current dose of levothyroxine. Patient follows with oncologist and agricultural pilot at [facility]. -Hypertension -Prediabetes Further recommendations based on clinical course. Plan of care discussed with Dr. Canales Result Diagram: 10/19/18 0948 10/19/18 0948 Results 24hrs Laboratory Tests Test 10/19/18 09:48 White Blood Count 11.7 #H Red Blood Count 4.24 L Hemoglobin 12.6 L Hematocrit 37.8 L Mean Corpuscular Volume 89.2 Mean Corpuscular Hemoglobin 29.7 Mean Corpuscular Hemoglobin Concent 33.3 Red Cell Distribution Width 13.0 Platelet Count 274 # Mean Platelet Volume 10.6 H Immature Granulocytes % 6.600 H Neutrophils % 81.7 H Lymphocytes % 7.5 L Monocytes % 3.9 Eosinophils % 0.0 Basophils % 0.3 Nucleated Red Blood Cells % 0.0 Immature Granulocytes # 0.770 H Neutrophils # 9.5 H Lymphocytes # 0.9 Monocytes # 0.5 Eosinophils # 0.0 Basophils # 0.0 Nucleated Red Blood Cells # 0.0 Sodium Level 134 L Potassium Level 4.0 Chloride Level 102 Carbon Dioxide Level 23 Anion Gap 9 Blood Urea Nitrogen 27 #H Creatinine 1.10 Est Glomerular Filtrat Rate mL/min > 60 Glucose Level 263 H Calcium Level 9.1 Exam/Review of Systems Exam Vitals Vital Signs Date Temp Pulse Resp B/P (MAP) Pulse Ox O2 O2 Flow FiO2 Time Delivery Rate 10/19/18 68 12:17 10/19/18 97.6 16 155/76 98 11:28 (102) 10/19/18 Nasal 3.0 07:52 Cannula 10/18/18 30 05:09 Intake and Output 10/18/18 10/18/18 10/19/18 1515:00 23:00 07:00 IntakeIntake Total 600 ml 950 ml BalanceBalance 600 ml 950 ml Exam Constitutional: alert, oriented Respiratory: diminished breath sounds Cardiovascular: regular rate and rhythm Gastrointestinal: soft, non-tender Musculoskeletal: nl extremities to inspection Extremities: normal pulses Neurological: nl mental status Skin: nl turgor Results Results 24hrs Laboratory Tests Test 10/19/18 09:48 White Blood Count 11.7 #H Red Blood Count 4.24 L Hemoglobin 12.6 L Hematocrit 37.8 L Mean Corpuscular Volume 89.2 Mean Corpuscular Hemoglobin 29.7 Mean Corpuscular Hemoglobin Concent 33.3 Red Cell Distribution Width 13.0 Platelet Count 274 # Mean Platelet Volume 10.6 H Immature Granulocytes % 6.600 H Neutrophils % 81.7 H Lymphocytes % 7.5 L Monocytes % 3.9 Eosinophils % 0.0 Basophils % 0.3 Nucleated Red Blood Cells % 0.0 Immature Granulocytes # 0.770 H Neutrophils # 9.5 H Lymphocytes # 0.9 Monocytes # 0.5 Eosinophils # 0.0 Basophils # 0.0 Nucleated Red Blood Cells # 0.0 Sodium Level 134 L Potassium Level 4.0 Chloride Level 102 Carbon Dioxide Level 23 Anion Gap 9 Blood Urea Nitrogen 27 #H Creatinine 1.10 Est Glomerular Filtrat Rate mL/min > 60 Glucose Level 263 H Calcium Level 9.1 Medications Medication Current Medications Ipratropium [place] (Atrovent 0.02% (Neb)) 0.5 mg Q4H RESP THERAPY HHN Last administered on 10/19/18at 11:53; Admin Dose 0.5 MG; Start 10/18/18 at 05:00 Albuterol/ Ipratropium (Duoneb) 3 ml Q4H RESP THERAPY PRN HHN SHORTNESS OF BREATH; Start 10/18/18 at 03:00 Enoxaparin Sodium (Lovenox) 40 mg DAILY SC Last administered on 10/19/18at 08:34; Admin Dose 40 MG; Start 10/18/18 at 09:00 Potassium Chloride/Sodium Chloride 1,000 ml @ 50 mls/hr Q20H IV Last administered on 10/18/18 23:22; Admin Dose 50 MLS/HR; Start 10/18/18 at 03:00 Methylprednisolone Sodium Succinate (Solu-Medrol) 40 mg Q6 IV Last administered on 10/19/18 11:36; Admin Dose 40 MG; Start 10/18/18 at 06:00 Levothyroxine Sodium (Synthroid) 125 mcg DAILY@06 PO Last administered on 10/19/18 05:08; Admin Dose 125 MCG; Start 10/19/18 at 06:00 Atenolol (Tenormin) 50 mg DAILY PO Last administered on 10/19/18 08:21; Admin Dose 50 MG; Start 10/18/18 at 10:00 Hydrochlorothiazide (Hydrochlorothiazide) 25 mg DAILY PO Last administered on 10/19/18 08:22; Admin Dose 25 MG; Start 10/18/18 at 10:00 Losartan Potassium (Cozaar) 100 mg DAILY PO Last administered on 10/19/18 08:21; Admin Dose 100 MG; Start 10/18/18 at 10:00 Guaifenesin/ Dextromethorphan (Robitussin Dm Liquid Cup) 10 ml Q4H PRN PO COUGH Last administered on 10/19/18 11:36; Admin Dose 10 ML; Start 10/18/18 at 13:30 Tiotropium [place] (Spiriva) 1 inh DAILY INH Last administered on 10/19/18 08:21; Admin Dose 1 INH; Start 10/18/18 at 14:30 Arformoterol Tartrate (Brovana (Neb)) 2 ml BID RESP THERAPY INH Last administered on 10/19/18 12:05; Admin Dose 2 ML; Start 10/18/18 at 20:00 Budesonide (Pulmicort (Neb)) 0.5 mg Q12H RESP THERAPY INH Last administered on 10/19/18 11:53; Admin Dose 0.5 MG; Start 10/18/18 at 20:00 Cefepime HCl 50 ml @ 100 mls/hr Q12 IVPB Last administered on 10/19/18 08:22; Admin Dose 100 MLS/HR; Start 10/18/18 at 15:30 Pantoprazole (Protonix Tab) 40 mg DAILY@06 PO Last administered on 10/19/18at 05:08; Admin Dose 40 MG; Start 10/19/18 at 06:00 Azithromycin (Zithromax) 500 mg DAILY PO ; Start 10/19/18 at 12:30 JULIO CESAR REINA Oct 19, 2018 12:48
[2018-10-19] MEDS ORDERED: DEXTROSE 50% 50 ML SYRINGE IV PRN ×2 (13:00)
[2018-10-19] MEDS ORDERED: GLUCAGON 1 MG INJ IM PRN (13:00)
[2018-10-19] MEDS ORDERED: GLUCOSE GEL 15 GRAM TUBE BUCCAL PRN (13:00)
[2018-10-19] MEDS ORDERED: GLUCOSE GEL 15 GRAM TUBE PO PRN ×2 (13:00)
[2018-10-19] MEDS: AZITHROMYCIN 250 MG TAB PO SCH (13:09)
[2018-10-19] MEDS: 1/2 NS + KCL 20 MEQ 1,000 ML IV SCH ×2 (15:32→18:28)
[2018-10-19] MEDS: INSULIN ASPART [NOVOLOG] 3 ML PEN SC SCH ×2 (17:28→21:48)
[2018-10-20] VITALS (10 sets, daily range): BP systolic 146–168; BP diastolic 74–80; PULSE 61–75; RESP 16–20
[2018-10-20] MEDS: IPRATROPIUM (NEB) 0.5 MG/2.5 ML AMP HHN SCH ×6 (02:05→21:14)
[2018-10-20] MEDS: PANTOPRAZOLE (EC) 40 MG TAB PO SCH (05:22)
[2018-10-20] MEDS: LEVOTHYROXINE 125 MCG TAB PO SCH (05:22)
[2018-10-20] MEDS: METHYLPREDNISOLONE 40 MG INJ IV SCH ×4 (05:22→16:55)
[2018-10-20] MEDS: GUAIFENESIN/DM 5ML CUP PO PRN ×3 (05:36→20:08)
[2018-10-20] MEDS: LOSARTAN 50 MG TAB PO SCH (08:11)
[2018-10-20] MEDS: AZITHROMYCIN 250 MG TAB PO SCH (08:11)
[2018-10-20] MEDS: ATENOLOL 50 MG TAB PO SCH (08:11)
[2018-10-20] MEDS: CEFEPIME 1GM/50 ML (PMX) 50 ML IVPB SCH ×2 (08:12→20:08)
[2018-10-20] MEDS: TIOTROPIUM 18 MCG CAPSULE INHA DEV INH SCH (08:12)
[2018-10-20] MEDS: HYDROCHLOROTHIAZIDE 25 MG TAB PO SCH (08:12)
[2018-10-20] MEDS: INSULIN ASPART [NOVOLOG] 3 ML PEN SC SCH ×4 (08:33→21:26)
[2018-10-20] MEDS: ENOXAPARIN 40 MG/0.4 ML SYG SC SCH (08:34)
[2018-10-20] MEDS: BUDESONIDE (NEB) 0.5MG/2ML AMP INH SCH ×2 (09:34→21:14)
[2018-10-20] MEDS: ARFORMOTEROL TARTRATE 15MCG/2 ML AMP INH SCH ×2 (09:38→21:14)
--- NOTE | 2018-10-20 14:01 | CONS ---
Assessment/Plan Assessment/Plan Hospital Course (Demo Recall) No acute changes overnight. Patient is alert, comfortable on 3 L nasal cannula, no fevers overnight Microbiology: All cultures have been negative CT of the chest on admission revealed no pulmonary embolism moderate to severe emphysematous changes right lower lobe infectious or inflammatory bronchiolitis. Patchy consolidative opacities in the left lower lobe suspicious for pneumonia. 6 mm nodule in the right lower lobe. Antimicrobials: Cefepime, Zithromax Physical examination: Well-nourished well-developed elderly man who is awake in no distress. Head atraumatic normocephalic sclera nonicteric. Neck is supple. Chest rise symmetrical. Breath sounds diminished bases. Heart: S1-S2. Abdomen soft, bowel sounds present. Extremities without cyanosis. Assessment: 1. Acute hypoxemic respiratory failure 2. Pneumonia 3. Pulmonary nodule rule out malignancy 4. Thyroid cancer with reported lung metastasis status post thyroidectomy and radiation therapy 5. COPD Plan: Remains stable, continue present care, f/u pulmonary rec-s Consultation Date/Type/Reason Admit Date/Time Oct 17, 2018 at 18:49 Initial Consult Date Type of Consult id Date/Time of Note DATE: 10/20/18 TIME: 14:00 Exam/Review of Systems Exam Vitals Vital Signs Date Temp Pulse Resp B/P (MAP) Pulse Ox O2 O2 Flow FiO2 Time Delivery Rate 10/20/18 3.0 13:20 10/20/18 74 20 95 Nasal 13:18 Cannula 10/20/18 97.9 168/80 11:39 (109) 10/18/18 30 05:09 Intake and Output 10/19/18 10/19/18 10/20/18 1515:00 23:00 07:00 IntakeIntake Total 50 ml 1750 ml 1600 ml BalanceBalance 50 ml 1750 ml 1600 ml Results Result Diagram: 10/20/18 0552 10/20/18 0552 Results 24hrs Laboratory Tests Test 10/19/18 16:53 10/19/18 21:35 10/20/18 05:52 10/20/18 08:03 Bedside Glucose 204 197 238 H White Blood Count 7.5 # Red Blood Count 4.19 L Hemoglobin 12.5 L Hematocrit 36.9 L Mean Corpuscular 88.1 Volume Mean Corpuscular 29.8 Hemoglobin Mean Corpuscular 33.9 Hemoglobin Concent Red Cell 13.0 Distribution Width Platelet Count 317 Mean Platelet Volume 9.8 Immature 1.900 H Granulocytes % Neutrophils % Segmented 69 Neutrophils % (Manual) Band Neutrophils % 14 H (Manual) Lymphocytes % Lymphocytes % 4 L (Manual) Reactive Lymphocytes 2 H % (Manual) Monocytes % Monocytes % (Manual) 6 Eosinophils % Basophils % Metamyelocytes % 1 H (manual) Myelocytes % 3 H (Manual) Promyelocytes % 1 H (Manual) Nucleated Red Blood 0.0 Cells % Immature 0.140 H Granulocytes # Neutrophils # Neutrophils # 5.3 (Manual) Band Neutrophils # 1.0 H Lymphocytes (Manual) 0.3 L Lymphocytes # Reactive Lymphocytes 0.1 H # Monocytes # Monocytes # (Manual) 0.4 Eosinophils # Basophils # Metamyelocytes # 0.0 Myelocytes # 0.2 H Promyelocytes # 0.0 Nucleated Red Blood Cells # Platelet Estimate NORMAL Giant Platelets 1 H Polychromasia 2+ Sodium Level 135 Potassium Level 3.9 Chloride Level 99 Carbon Dioxide Level 27 Anion Gap 9 Blood Urea Nitrogen 28 H Creatinine 1.08 Est Glomerular > 60 Filtrat Rate mL/min Glucose Level 229 H Calcium Level 8.5 Magnesium Level 2.5 Test 10/20/18 11:54 Bedside Glucose 216 Medications Medication Current Medications Ipratropium [place] (Atrovent 0.02% (Neb)) 0.5 mg Q4H RESP THERAPY HHN Last administered on 10/20/18at 13:17; Admin Dose 0.5 MG; Start 10/18/18 at 05:00 Albuterol/ Ipratropium (Duoneb) 3 ml Q4H RESP THERAPY PRN HHN SHORTNESS OF BREATH; Start 10/18/18 at 03:00 Enoxaparin Sodium (Lovenox) 40 mg DAILY SC Last administered on 10/20/18at 08:34; Admin Dose 40 MG; Start 10/18/18 at 09:00 Potassium Chloride/Sodium Chloride 1,000 ml @ 50 mls/hr Q20H IV Last administered on 10/19/18at 18:28; Admin Dose 50 MLS/HR; Start 10/18/18 at 03:00 Methylprednisolone Sodium Succinate (Solu-Medrol) 40 mg Q6 IV Last administered on 10/20/18at 11:54; Admin Dose 40 MG; Start 10/18/18 at 06:00 Levothyroxine Sodium (Synthroid) 125 mcg DAILY@06 PO Last administered on 10/20/18 05:22; Admin Dose 125 MCG; Start 10/19/18 at 06:00 Atenolol (Tenormin) 50 mg DAILY PO Last administered on 10/20/18 08:11; Admin Dose 50 MG; Start 10/18/18 at 10:00 Hydrochlorothiazide (Hydrochlorothiazide) 25 mg DAILY PO Last administered on 10/20/18 08:12; Admin Dose 25 MG; Start 10/18/18 at 10:00 Losartan Potassium (Cozaar) 100 mg DAILY PO Last administered on 10/20/18 08:11; Admin Dose 100 MG; Start 10/18/18 at 10:00 Guaifenesin/ Dextromethorphan (Robitussin Dm Liquid Cup) 10 ml Q4H PRN PO COUGH Last administered on 10/20/18 12:12; Admin Dose 10 ML; Start 10/18/18 at 13:30 Tiotropium [place] (Spiriva) 1 inh DAILY INH Last administered on 10/20/18 08:12; Admin Dose 1 INH; Start 10/18/18 at 14:30 Arformoterol Tartrate (Brovana (Neb)) 2 ml BID RESP THERAPY INH Last administered on 10/20/18 09:38; Admin Dose 2 ML; Start 10/18/18 at 20:00 Budesonide (Pulmicort (Neb)) 0.5 mg Q12H RESP THERAPY INH Last administered on 10/20/18 09:34; Admin Dose 0.5 MG; Start 10/18/18 at 20:00 Cefepime HCl 50 ml @ 100 mls/hr Q12 IVPB Last administered on 10/20/18 08:12; Admin Dose 100 MLS/HR; Start 10/18/18 at 15:30 Pantoprazole (Protonix Tab) 40 mg DAILY@06 PO Last administered on 10/20/18 05:22; Admin Dose 40 MG; Start 10/19/18 at 06:00 Azithromycin (Zithromax) 500 mg DAILY PO Last administered on 10/20/18 08:11; Admin Dose 500 MG; Start 10/19/18 at 12:30 Insulin Aspart (Novolog Insulin Pen) NOVOLOG *MILD* ALGORITHM WITH MEALS BEDTIME SC Last administered on 10/20/18at 12:02; Admin Dose 2 UNIT; Start 10/19/18 at 17:55 Miscellaneous Information 1 ea NOTE XX ; Start 10/19/18 at 13:00 Glucose (Glutose) 15 gm Q15M PRN PO DECREASED GLUCOSE; Start 10/19/18 at 13:00 Glucose (Glutose) 22.5 gm Q15M PRN PO DECREASED GLUCOSE; Start 10/19/18 at 13:00 Dextrose (D50w Syringe) 25 ml Q15M PRN IV DECREASED GLUCOSE; Start 10/19/18 at 13:00 Dextrose (D50w Syringe) 50 ml Q15M PRN IV DECREASED GLUCOSE; Start 10/19/18 at 13:00 Glucagon (Glucagen) 1 mg Q15M PRN IM DECREASED GLUCOSE; Start 10/19/18 at 13:00 Glucose (Glutose) 15 gm Q15M PRN BUCCAL DECREASED GLUCOSE; Start 10/19/18 at 13:00 ROSA SANDRA NP Oct 20, 2018 14:01
--- NOTE | 2018-10-20 15:59 | PN ---
Date/Time of Note Date/Time of Note DATE: 10/20/18 TIME: 15:51 Assessment/Plan VTE Prophylaxis Risk score (from Ns)>0 risk: 3 SCD applied (from Ns): Yes Pharmacological prophylaxis: LMWH Lines/Catheters IV [facility]from [facility]): Peripheral IV Urinary Cath still in place: No Assessment/Plan Hospital Course Patient continues on supplemental oxygen, complains of productive cough however stated that he feels little bit better today, continue antibiotics per ID, pending pulmonology evaluation. Assessment/Plan -Acute respiratory failure requiring BiPAP, continue oxygen supplementation, BiPAP as needed, bronchodilators. Dr. Bustos is following in pulmonology consultation. -Left lower lobe healthcare acquired pneumonia, continue varix per ID. Dr. Smith is following in infection disease consultation. -COPD exacerbation, continue steroids -Thyroid Cancer with metastasis to the lungs, status post thyroidectomy. Continue current dose of levothyroxine. Patient follows with oncologist and physical education specialist at [facility]. -Hypertension -Diabetes mellitus type 2 with hemoglobin A1c 7.1. Continue Lantus and NovoLog. Further recommendations based on clinical course. Plan of care discussed with Dr. Canales. Result Diagram: 10/20/18 0552 10/20/18 0552 Results 24hrs Laboratory Tests Test 10/19/18 16:53 10/19/18 21:35 10/20/18 05:52 10/20/18 08:03 Bedside Glucose 204 197 238 H White Blood Count 7.5 # Red Blood Count 4.19 L Hemoglobin 12.5 L Hematocrit 36.9 L Mean Corpuscular 88.1 Volume Mean Corpuscular 29.8 Hemoglobin Mean Corpuscular 33.9 Hemoglobin Concent Red Cell 13.0 Distribution Width Platelet Count 317 Mean Platelet Volume 9.8 Immature 1.900 H Granulocytes % Neutrophils % Segmented 69 Neutrophils % (Manual) Band Neutrophils % 14 H (Manual) Lymphocytes % Lymphocytes % 4 L (Manual) Reactive Lymphocytes 2 H % (Manual) Monocytes % Monocytes % (Manual) 6 Eosinophils % Basophils % Metamyelocytes % 1 H (manual) Myelocytes % 3 H (Manual) Promyelocytes % 1 H (Manual) Nucleated Red Blood 0.0 Cells % Immature 0.140 H Granulocytes # Neutrophils # Neutrophils # 5.3 (Manual) Band Neutrophils # 1.0 H Lymphocytes (Manual) 0.3 L Lymphocytes # Reactive Lymphocytes 0.1 H # Monocytes # Monocytes # (Manual) 0.4 Eosinophils # Basophils # Metamyelocytes # 0.0 Myelocytes # 0.2 H Promyelocytes # 0.0 Nucleated Red Blood Cells # Platelet Estimate NORMAL Giant Platelets 1 H Polychromasia 2+ Sodium Level 135 Potassium Level 3.9 Chloride Level 99 Carbon Dioxide Level 27 Anion Gap 9 Blood Urea Nitrogen 28 H Creatinine 1.08 Est Glomerular > 60 Filtrat Rate mL/min Glucose Level 229 H Calcium Level 8.5 Magnesium Level 2.5 Test 10/20/18 11:54 Bedside Glucose 216 Exam/Review of Systems Exam Vitals Vital Signs Date Temp Pulse Resp B/P (MAP) Pulse Ox O2 O2 Flow FiO2 Time Delivery Rate 10/20/18 3.0 13:20 10/20/18 74 20 95 Nasal 13:18 Cannula 10/20/18 97.9 168/80 11:39 (109) 10/18/18 30 05:09 Intake and Output 10/19/18 10/19/18 10/20/18 1515:00 23:00 07:00 IntakeIntake Total 50 ml 1750 ml 1600 ml BalanceBalance 50 ml 1750 ml 1600 ml Exam Constitutional: alert, oriented Respiratory: diminished breath sounds Cardiovascular: regular rate and rhythm Gastrointestinal: soft, non-tender Musculoskeletal: nl extremities to inspection Extremities: normal pulses Neurological: nl mental status Skin: nl turgor Results Results 24hrs Laboratory Tests Test 10/19/18 16:53 10/19/18 21:35 10/20/18 05:52 10/20/18 08:03 Bedside Glucose 204 197 238 H White Blood Count 7.5 # Red Blood Count 4.19 L Hemoglobin 12.5 L Hematocrit 36.9 L Mean Corpuscular 88.1 Volume Mean Corpuscular 29.8 Hemoglobin Mean Corpuscular 33.9 Hemoglobin Concent Red Cell 13.0 Distribution Width Platelet Count 317 Mean Platelet Volume 9.8 Immature 1.900 H Granulocytes % Neutrophils % Segmented 69 Neutrophils % (Manual) Band Neutrophils % 14 H (Manual) Lymphocytes % Lymphocytes % 4 L (Manual) Reactive Lymphocytes 2 H % (Manual) Monocytes % Monocytes % (Manual) 6 Eosinophils % Basophils % Metamyelocytes % 1 H (manual) Myelocytes % 3 H (Manual) Promyelocytes % 1 H (Manual) Nucleated Red Blood 0.0 Cells % Immature 0.140 H Granulocytes # Neutrophils # Neutrophils # 5.3 (Manual) Band Neutrophils # 1.0 H Lymphocytes (Manual) 0.3 L Lymphocytes # Reactive Lymphocytes 0.1 H # Monocytes # Monocytes # (Manual) 0.4 Eosinophils # Basophils # Metamyelocytes # 0.0 Myelocytes # 0.2 H Promyelocytes # 0.0 Nucleated Red Blood Cells # Platelet Estimate NORMAL Giant Platelets 1 H Polychromasia 2+ Sodium Level 135 Potassium Level 3.9 Chloride Level 99 Carbon Dioxide Level 27 Anion Gap 9 Blood Urea Nitrogen 28 H Creatinine 1.08 Est Glomerular > 60 Filtrat Rate mL/min Glucose Level 229 H Calcium Level 8.5 Magnesium Level 2.5 Test 10/20/18 11:54 Bedside Glucose 216 Medications Medication Current Medications Ipratropium [place] (Atrovent 0.02% (Neb)) 0.5 mg Q4H RESP THERAPY HHN Last administered on 10/20/18 13:17; Admin Dose 0.5 MG; Start 10/18/18 at 05:00 Albuterol/ Ipratropium (Duoneb) 3 ml Q4H RESP THERAPY PRN HHN SHORTNESS OF BREATH; Start 10/18/18 at 03:00 Enoxaparin Sodium (Lovenox) 40 mg DAILY SC Last administered on 10/20/18 08:34; Admin Dose 40 MG; Start 10/18/18 at 09:00 Potassium Chloride/Sodium Chloride 1,000 ml @ 50 mls/hr Q20H IV Last administered on 10/19/18 18:28; Admin Dose 50 MLS/HR; Start 10/18/18 at 03:00 Methylprednisolone Sodium Succinate (Solu-Medrol) 40 mg Q6 IV Last administered on 10/20/18 11:54; Admin Dose 40 MG; Start 10/18/18 at 06:00 Levothyroxine Sodium (Synthroid) 125 mcg DAILY@06 PO Last administered on 10/20/18 05:22; Admin Dose 125 MCG; Start 10/19/18 at 06:00 Atenolol (Tenormin) 50 mg DAILY PO Last administered on 10/20/18 08:11; Admin Dose 50 MG; Start 10/18/18 at 10:00 Hydrochlorothiazide (Hydrochlorothiazide) 25 mg DAILY PO Last administered on 10/20/18 08:12; Admin Dose 25 MG; Start 10/18/18 at 10:00 Losartan Potassium (Cozaar) 100 mg DAILY PO Last administered on 10/20/18 08:11; Admin Dose 100 MG; Start 10/18/18 at 10:00 Guaifenesin/ Dextromethorphan (Robitussin Dm Liquid Cup) 10 ml Q4H PRN PO COUGH Last administered on 10/20/18 12:12; Admin Dose 10 ML; Start 10/18/18 at 13:30 Tiotropium [place] (Spiriva) 1 inh DAILY INH Last administered on 10/20/18 08:12; Admin Dose 1 INH; Start 10/18/18 at 14:30 Arformoterol Tartrate (Brovana (Neb)) 2 ml BID RESP THERAPY INH Last administered on 10/20/18 09:38; Admin Dose 2 ML; Start 10/18/18 at 20:00 Budesonide (Pulmicort (Neb)) 0.5 mg Q12H RESP THERAPY INH Last administered on 10/20/18 09:34; Admin Dose 0.5 MG; Start 10/18/18 at 20:00 Cefepime HCl 50 ml @ 100 mls/hr Q12 IVPB Last administered on 10/20/18 08:12; Admin Dose 100 MLS/HR; Start 10/18/18 at 15:30 Pantoprazole (Protonix Tab) 40 mg DAILY@06 PO Last administered on 10/20/18 05:22; Admin Dose 40 MG; Start 10/19/18 at 06:00 Azithromycin (Zithromax) 500 mg DAILY PO Last administered on 10/20/18 08:11; Admin Dose 500 MG; Start 10/19/18 at 12:30 Insulin Aspart (Novolog Insulin Pen) NOVOLOG *MILD* ALGORITHM WITH MEALS BEDTIME SC Last administered on 10/20/18 12:02; Admin Dose 2 UNIT; Start 10/19/18 at 17:55 Miscellaneous Information 1 ea NOTE XX ; Start 10/19/18 at 13:00 Glucose (Glutose) 15 gm Q15M PRN PO DECREASED GLUCOSE; Start 10/19/18 at 13:00 Glucose (Glutose) 22.5 gm Q15M PRN PO DECREASED GLUCOSE; Start 10/19/18 at 13:00 Dextrose (D50w Syringe) 25 ml Q15M PRN IV DECREASED GLUCOSE; Start 10/19/18 at 13:00 Dextrose (D50w Syringe) 50 ml Q15M PRN IV DECREASED GLUCOSE; Start 10/19/18 at 13:00 Glucagon (Glucagen) 1 mg Q15M PRN IM DECREASED GLUCOSE; Start 10/19/18 at 13:00 Glucose (Glutose) 15 gm Q15M PRN BUCCAL DECREASED GLUCOSE; Start 10/19/18 at 13:00 JULIO CESAR REINA Oct 20, 2018 15:59
[2018-10-20] MEDS: 1/2 NS + KCL 20 MEQ 1,000 ML IV SCH (16:51)
[2018-10-20] MEDS: INSULIN GLARGINE [LANTus] (100 UNITS/ML) SYG SC SCH (20:21)
[2018-10-21] VITALS (11 sets, daily range): BP systolic 149–170; BP diastolic 76–88; PULSE 58–74; RESP 18–20
[2018-10-21] MEDS: METHYLPREDNISOLONE 40 MG INJ IV SCH ×5 (00:15→23:42)
[2018-10-21] MEDS: IPRATROPIUM (NEB) 0.5 MG/2.5 ML AMP HHN SCH ×4 (01:23→19:38)
[2018-10-21] MEDS: PANTOPRAZOLE (EC) 40 MG TAB PO SCH (05:12)
[2018-10-21] MEDS: LEVOTHYROXINE 125 MCG TAB PO SCH (05:12)
[2018-10-21] MEDS: CEFEPIME 1GM/50 ML (PMX) 50 ML IVPB SCH ×2 (07:49→21:22)
[2018-10-21] MEDS: AZITHROMYCIN 250 MG TAB PO SCH (07:50)
[2018-10-21] MEDS: TIOTROPIUM 18 MCG CAPSULE INHA DEV INH SCH (07:50)
[2018-10-21] MEDS: LOSARTAN 50 MG TAB PO SCH (07:50)
[2018-10-21] MEDS: HYDROCHLOROTHIAZIDE 25 MG TAB PO SCH (07:50)
[2018-10-21] MEDS: ATENOLOL 50 MG TAB PO SCH (07:50)
[2018-10-21] MEDS: INSULIN ASPART [NOVOLOG] 3 ML PEN SC SCH ×4 (08:02→21:37)
[2018-10-21] MEDS: ENOXAPARIN 40 MG/0.4 ML SYG SC SCH (08:02)
[2018-10-21] MEDS: BUDESONIDE (NEB) 0.5MG/2ML AMP INH SCH ×2 (09:25→19:36)
[2018-10-21] MEDS: ARFORMOTEROL TARTRATE 15MCG/2 ML AMP INH SCH ×2 (09:41→19:36)
[2018-10-21] MEDS: 1/2 NS + KCL 20 MEQ 1,000 ML IV SCH (11:04)
--- NOTE | 2018-10-21 11:50 | CONS ---
Assessment/Plan Assessment/Plan Hospital Course (Demo Recall) No acute changes overnight. Patient is alert, comfortable on nasal cannula, no fevers overnight Microbiology: All cultures have been negative CT of the chest on admission revealed no pulmonary embolism moderate to severe emphysematous changes right lower lobe infectious or inflammatory bronchiolitis. Patchy consolidative opacities in the left lower lobe suspicious for pneumonia. 6 mm nodule in the right lower lobe. Antimicrobials: Cefepime, Zithromax Physical examination: Well-nourished well-developed elderly man who is awake in no distress. Head atraumatic normocephalic sclera nonicteric. Neck is supple. Chest rise symmetrical. Breath sounds diminished bases. Heart: S1-S2. Abdomen soft, bowel sounds present. Extremities without cyanosis. Assessment: 1. Acute hypoxemic respiratory failure 2. Pneumonia 3. Pulmonary nodule rule out malignancy 4. Thyroid cancer with reported lung metastasis status post thyroidectomy and radiation therapy 5. COPD Plan: Remains stable, continue present care, repeat cxr in am Consultation Date/Type/Reason Admit Date/Time Oct 17, 2018 at 18:49 Initial Consult Date Type of Consult id Date/Time of Note DATE: 10/21/18 TIME: 11:50 Exam/Review of Systems Exam Vitals Vital Signs Date Temp Pulse Resp B/P (MAP) Pulse Ox O2 O2 Flow FiO2 Time Delivery Rate 10/21/18 97.6 62 20 165/88 91 11:27 (113) 10/21/18 3.0 09:45 10/21/18 Nasal 09:44 Cannula 10/18/18 30 05:09 Intake and Output 10/20/18 10/20/18 10/21/18 1515:00 23:00 07:00 IntakeIntake Total 1500 ml 710 ml BalanceBalance 1500 ml 710 ml Results Result Diagram: 10/21/18 0729 10/21/18 0729 Results 24hrs Laboratory Tests Test 10/20/18 11:54 10/20/18 16:57 10/20/18 20:15 10/21/18 07:29 Bedside Glucose 216 190 216 White Blood Count 8.1 Red Blood Count 4.56 L Hemoglobin 13.6 L Hematocrit 40.7 L Mean Corpuscular 89.3 Volume Mean Corpuscular 29.8 Hemoglobin Mean Corpuscular 33.4 Hemoglobin Concent Red Cell 12.9 Distribution Width Platelet Count 395 # Mean Platelet Volume 9.9 Immature 3.100 H Granulocytes % Neutrophils % Segmented 80 H Neutrophils % (Manual) Band Neutrophils % 1 (Manual) Lymphocytes % Lymphocytes % 9 L (Manual) Reactive Lymphocytes 2 H % (Manual) Monocytes % Monocytes % (Manual) 5 Eosinophils % Basophils % Myelocytes % 1 H (Manual) Promyelocytes % 2 H (Manual) Nucleated Red Blood 0.0 Cells % Immature 0.250 H Granulocytes # Neutrophils # Neutrophils # 6.5 (Manual) Band Neutrophils # 0.0 Lymphocytes (Manual) 0.7 L Lymphocytes # Reactive Lymphocytes 0.1 H # Monocytes # Monocytes # (Manual) 0.4 Eosinophils # Basophils # Myelocytes # 0.0 Promyelocytes # 0.1 H Nucleated Red Blood Cells # Platelet Estimate NORMAL Giant Platelets 4 H Poikilocytosis 1+ Anisocytosis 1+ Sodium Level 136 Potassium Level 4.7 Chloride Level 99 Carbon Dioxide Level 28 Anion Gap 9 Blood Urea Nitrogen 27 H Creatinine 1.00 Est Glomerular > 60 Filtrat Rate mL/min Glucose Level 219 Calcium Level 8.9 Test 10/21/18 07:53 Bedside Glucose 208 Medications Medication Current Medications Ipratropium [place] (Atrovent 0.02% (Neb)) 0.5 mg Q4H RESP THERAPY HHN Last administered on 10/21/18 09:36; Admin Dose 0.5 MG; Start 10/18/18 at 05:00 Albuterol/ Ipratropium (Duoneb) 3 ml Q4H RESP THERAPY PRN HHN SHORTNESS OF BREATH; Start 10/18/18 at 03:00 Enoxaparin Sodium (Lovenox) 40 mg DAILY SC Last administered on 10/21/18 08:02; Admin Dose 40 MG; Start 10/18/18 at 09:00 Potassium Chloride/Sodium Chloride 1,000 ml @ 50 mls/hr Q20H IV Last administered on 10/21/18 11:04; Admin Dose 50 MLS/HR; Start 10/18/18 at 03:00 Methylprednisolone Sodium Succinate (Solu-Medrol) 40 mg Q6 IV Last administered on 10/21/18 05:12; Admin Dose 40 MG; Start 10/18/18 at 06:00 Levothyroxine Sodium (Synthroid) 125 mcg DAILY@06 PO Last administered on 05:12; Admin Dose 125 MCG; Start 10/19/18 at 06:00 Atenolol (Tenormin) 50 mg DAILY PO Last administered on 10/21/18 07:50; Admin Dose 50 MG; Start 10/18/18 at 10:00 Hydrochlorothiazide (Hydrochlorothiazide) 25 mg DAILY PO Last administered on 10/21/18 07:50; Admin Dose 25 MG; Start 10/18/18 at 10:00 Losartan Potassium (Cozaar) 100 mg DAILY PO Last administered on 10/21/18 07:50; Admin Dose 100 MG; Start 10/18/18 at 10:00 Guaifenesin/ Dextromethorphan (Robitussin Dm Liquid Cup) 10 ml Q4H PRN PO COUGH Last administered on 10/20/18 20:08; Admin Dose 10 ML; Start 10/18/18 at 13:30 Tiotropium [place] (Spiriva) 1 inh DAILY INH Last administered on 10/21/18 07:50; Admin Dose 1 INH; Start 10/18/18 at 14:30 Arformoterol Tartrate (Brovana (Neb)) 2 ml BID RESP THERAPY INH Last adm inistered on 10/21/18 09:41; Admin Dose 2 ML; Start 10/18/18 at 20:00 Budesonide (Pulmicort (Neb)) 0.5 mg Q12H RESP THERAPY INH Last administered on 10/21/18 09:25; Admin Dose 0.5 MG; Start 10/18/18 at 20:00 Cefepime HCl 50 ml @ 100 mls/hr Q12 IVPB Last administered on 10/21/18 07:49; Admin Dose 100 MLS/HR; Start 10/18/18 at 15:30 Pantoprazole (Protonix Tab) 40 mg DAILY@06 PO Last administered on 10/21/18 05:12; Admin Dose 40 MG; Start 10/19/18 at 06:00 Azithromycin (Zithromax) 500 mg DAILY PO Last administered on 10/21/18 07:50; Admin Dose 500 MG; Start 10/19/18 at 12:30 Insulin Aspart (Novolog Insulin Pen) NOVOLOG *MILD* ALGORITHM WITH MEALS BEDTIME SC Last administered on 10/21/18 08:02; Admin Dose 2 UNIT; Start 10/19/18 at 17:55 Miscellaneous Information 1 ea NOTE XX ; Start 10/19/18 at 13:00 Glucose (Glutose) 15 gm Q15M PRN PO DECREASED GLUCOSE; Start 10/19/18 at 13:00 Glucose (Glutose) 22.5 gm Q15M PRN PO DECREASED GLUCOSE; Start 10/19/18 at 13:00 Dextrose (D50w Syringe) 25 ml Q15M PRN IV DECREASED GLUCOSE; Start 10/19/18 at 13:00 Dextrose (D50w Syringe) 50 ml Q15M PRN IV DECREASED GLUCOSE; Start 10/19/18 at 13:00 Glucagon (Glucagen) 1 mg Q15M PRN IM DECREASED GLUCOSE; Start 10/19/18 at 13:00 Glucose (Glutose) 15 gm Q15M PRN BUCCAL DECREASED GLUCOSE; Start 10/19/18 at 13:00 Insulin Glargine (Lantus) 10 units DAILY@2000 SC Last administered on 10/20/18at 20:21; Admin Dose 10 UNITS; Start 10/20/18 at 20:00 ROSA SANDRA NP Oct 21, 2018 11:50
--- NOTE | 2018-10-21 12:35 | PN ---
Date/Time of Note Date/Time of Note DATE: 10/21/18 TIME: 12:35 Assessment/Plan VTE Prophylaxis Risk score (from Ns)>0 risk: 3 SCD applied (from Ns): No Lines/Catheters IV Catheter Type (from [facility]): Peripheral IV Urinary Cath still in place: No Assessment/Plan Assessment/Plan -Acute respiratory failure requiring BiPAP, continue oxygen supplementation, BiPAP as needed, bronchodilators. Dr. Bustos is following in pulmonology consultation. -Left lower lobe healthcare acquired pneumonia, continue varix per ID. Dr. Smith is following in infection disease consultation. -COPD exacerbation, continue steroids -Thyroid Cancer with metastasis to the lungs, status post thyroidectomy. Continue current dose of levothyroxine. Patient follows with oncologist and lead medical technologist at [facility]. -Hypertension -Diabetes mellitus type 2 with hemoglobin A1c 7.1. Continue Lantus and NovoLog. Further recommendations based on clinical course. Plan of care discussed with Dr. Canales. Result Diagram: 10/21/18 0729 10/21/18 0729 Results 24hrs Laboratory Tests Test 10/20/18 16:57 10/20/18 20:15 10/21/18 07:29 10/21/18 07:53 Bedside Glucose 190 216 208 White Blood Count 8.1 Red Blood Count 4.56 L Hemoglobin 13.6 L Hematocrit 40.7 L Mean Corpuscular 89.3 Volume Mean Corpuscular 29.8 Hemoglobin Mean Corpuscular 33.4 Hemoglobin Concent Red Cell 12.9 Distribution Width Platelet Count 395 # Mean Platelet Volume 9.9 Immature 3.100 H Granulocytes % Neutrophils % Segmented 80 H Neutrophils % (Manual) Band Neutrophils % 1 (Manual) Lymphocytes % Lymphocytes % 9 L (Manual) Reactive Lymphocytes 2 H % (Manual) Monocytes % Monocytes % (Manual) 5 Eosinophils % Basophils % Myelocytes % 1 H (Manual) Promyelocytes % 2 H (Manual) Nucleated Red Blood 0.0 Cells % Immature 0.250 H Granulocytes # Neutrophils # Neutrophils # 6.5 (Manual) Band Neutrophils # 0.0 Lymphocytes (Manual) 0.7 L Lymphocytes # Reactive Lymphocytes 0.1 H # Monocytes # Monocytes # (Manual) 0.4 Eosinophils # Basophils # Myelocytes # 0.0 Promyelocytes # 0.1 H Nucleated Red Blood Cells # Platelet Estimate NORMAL Giant Platelets 4 H Poikilocytosis 1+ Anisocytosis 1+ Sodium Level 136 Potassium Level 4.7 Chloride Level 99 Carbon Dioxide Level 28 Anion Gap 9 Blood Urea Nitrogen 27 H Creatinine 1.00 Est Glomerular > 60 Filtrat Rate mL/min Glucose Level 219 Calcium Level 8.9 Test 10/21/18 11:50 Bedside Glucose 207 Exam/Review of Systems Exam Vitals Vital Signs Date Temp Pulse Resp B/P (MAP) Pulse Ox O2 O2 Flow FiO2 Time Delivery Rate 10/21/18 61 12:07 10/21/18 97.6 20 165/88 91 11:27 (113) 10/21/18 3.0 09:45 10/21/18 Nasal 09:44 Cannula 10/18/18 30 05:09 Intake and Output 10/20/18 10/20/18 10/21/18 1515:00 23:00 07:00 IntakeIntake Total 1500 ml 710 ml BalanceBalance 1500 ml 710 ml Results Results 24hrs Laboratory Tests Test 10/20/18 16:57 10/20/18 20:15 10/21/18 07:29 10/21/18 07:53 Bedside Glucose 190 216 208 White Blood Count 8.1 Red Blood Count 4.56 L Hemoglobin 13.6 L Hematocrit 40.7 L Mean Corpuscular 89.3 Volume Mean Corpuscular 29.8 Hemoglobin Mean Corpuscular 33.4 Hemoglobin Concent Red Cell 12.9 Distribution Width Platelet Count 395 # Mean Platelet Volume 9.9 Immature 3.100 H Granulocytes % Neutrophils % Segmented 80 H Neutrophils % (Manual) Band Neutrophils % 1 (Manual) Lymphocytes % Lymphocytes % 9 L (Manual) Reactive Lymphocytes 2 H % (Manual) Monocytes % Monocytes % (Manual) 5 Eosinophils % Basophils % Myelocytes % 1 H (Manual) Promyelocytes % 2 H (Manual) Nucleated Red Blood 0.0 Cells % Immature 0.250 H Granulocytes # Neutrophils # Neutrophils # 6.5 (Manual) Band Neutrophils # 0.0 Lymphocytes (Manual) 0.7 L Lymphocytes # Reactive Lymphocytes 0.1 H # Monocytes # Monocytes # (Manual) 0.4 Eosinophils # Basophils # Myelocytes # 0.0 Promyelocytes # 0.1 H Nucleated Red Blood Cells # Platelet Estimate NORMAL Giant Platelets 4 H Poikilocytosis 1+ Anisocytosis 1+ Sodium Level 136 Potassium Level 4.7 Chloride Level 99 Carbon Dioxide Level 28 Anion Gap 9 Blood Urea Nitrogen 27 H Creatinine 1.00 Est Glomerular > 60 Filtrat Rate mL/min Glucose Level 219 Calcium Level 8.9 Test 10/21/18 11:50 Bedside Glucose 207 Medications Medication Current Medications Ipratropium [place] (Atrovent 0.02% (Neb)) 0.5 mg Q4H RESP THERAPY HHN Last administered on 10/21/18 09:36; Admin Dose 0.5 MG; Start 10/18/18 at 05:00 Albuterol/ Ipratropium (Duoneb) 3 ml Q4H RESP THERAPY PRN HHN SHORTNESS OF BREATH; Start 10/18/18 at 03:00 Enoxaparin Sodium (Lovenox) 40 mg DAILY SC Last administered on 10/21/18 08:02; Admin Dose 40 MG; Start 10/18/18 at 09:00 Potassium Chloride/Sodium Chloride 1,000 ml @ 50 mls/hr Q20H IV Last admi nistered on 10/21/18 11:04; Admin Dose 50 MLS/HR; Start 10/18/18 at 03:00 Methylprednisolone Sodium Succinate (Solu-Medrol) 40 mg Q6 IV Last administered on 10/21/18 11:50; Admin Dose 40 MG; Start 10/18/18 at 06:00 Levothyroxine Sodium (Synthroid) 125 mcg DAILY@06 PO Last administered on 10/21/18 05:12; Admin Dose 125 MCG; Start 10/19/18 at 06:00 Atenolol (Tenormin) 50 mg DAILY PO Last administered on 10/21/18 07:50; Admin Dose 50 MG; Start 10/18/18 at 10:00 Hydrochlorothiazide (Hydrochlorothiazide) 25 mg DAILY PO Last administered on 10/21/18 07:50; Admin Dose 25 MG; Start 10/18/18 at 10:00 Losartan Potassium (Cozaar) 100 mg DAILY PO Last administered on 10/21/18 07:50; Admin Dose 100 MG; Start 10/18/18 at 10:00 Guaifenesin/ Dextromethorphan (Robitussin Dm Liquid Cup) 10 ml Q4H PRN PO COUGH Last administered on 10/20/18at 20:08; Admin Dose 10 ML; Start 10/18/18 at 13:30 Tiotropium [place] (Spiriva) 1 inh DAILY INH Last administered on 10/21/18 07:50; Admin Dose 1 INH; Start 10/18/18 at 14:30 Arformoterol Tartrate (Brovana (Neb)) 2 ml BID RESP THERAPY INH Last administ ered on 10/21/18 09:41; Admin Dose 2 ML; Start 10/18/18 at 20:00 Budesonide (Pulmicort (Neb)) 0.5 mg Q12H RESP THERAPY INH Last administered on 10/21/18 09:25; Admin Dose 0.5 MG; Start 10/18/18 at 20:00 Cefepime HCl 50 ml @ 100 mls/hr Q12 IVPB Last administered on 10/21/18 07:49; Admin Dose 100 MLS/HR; Start 10/18/18 at 15:30 Pantoprazole (Protonix Tab) 40 mg DAILY@06 PO Last administered on 10/21/18at 05:12; Admin Dose 40 MG; Start 10/19/18 at 06:00 Azithromycin (Zithromax) 500 mg DAILY PO Last administered on 10/21/18 07:50; Admin Dose 500 MG; Start 10/19/18 at 12:30 Insulin Aspart (Novolog Insulin Pen) NOVOLOG *MILD* ALGORITHM WITH MEALS BEDTIME SC Last administered on 10/21/18at 11:56; Admin Dose 2 UNIT; Start 10/19/18 at 17:55 Miscellaneous Information 1 ea NOTE XX ; Start 10/19/18 at 13:00 Glucose (Glutose) 15 gm Q15M PRN PO DECREASED GLUCOSE; Start 10/19/18 at 13:00 Glucose (Glutose) 22.5 gm Q15M PRN PO DECREASED GLUCOSE; Start 10/19/18 at 13:00 Dextrose (D50w Syringe) 25 ml Q15M PRN IV DECREASED GLUCOSE; Start 10/19/18 at 13:00 Dextrose (D50w Syringe) 50 ml Q15M PRN IV DECREASED GLUCOSE; Start 10/19/18 at 13:00 Glucagon (Glucagen) 1 mg Q15M PRN IM DECREASED GLUCOSE; Start 10/19/18 at 13:00 Glucose (Glutose) 15 gm Q15M PRN BUCCAL DECREASED GLUCOSE; Start 10/19/18 at 13:00 Insulin Glargine (Lantus) 10 units DAILY@2000 SC Last administered on 10/20/18at 20:21; Admin Dose 10 UNITS; Start 10/20/18 at 20:00 DOV BURROWS Oct 21, 2018 12:35
[2018-10-21] MEDS: INSULIN GLARGINE [LANTus] (100 UNITS/ML) SYG SC SCH (22:36)
[2018-10-22] VITALS (9 sets, daily range): BP systolic 140–145; BP diastolic 69–75; PULSE 57–94; RESP 18–19
[2018-10-22] MEDS: IPRATROPIUM (NEB) 0.5 MG/2.5 ML AMP HHN SCH ×5 (00:18→16:53)
[2018-10-22] MEDS ORDERED: hydrALAzine 20 MG INJ IV PRN (03:00)
[2018-10-22] MEDS: PANTOPRAZOLE (EC) 40 MG TAB PO SCH (06:38)
[2018-10-22] MEDS: LEVOTHYROXINE 125 MCG TAB PO SCH (06:38)
[2018-10-22] MEDS: METHYLPREDNISOLONE 40 MG INJ IV SCH ×3 (06:38→17:06)
[2018-10-22] MEDS: INSULIN ASPART [NOVOLOG] 3 ML PEN SC SCH ×3 (07:54→17:13)
[2018-10-22] MEDS: ATENOLOL 50 MG TAB PO SCH (08:24)
[2018-10-22] MEDS: LOSARTAN 50 MG TAB PO SCH (08:24)
[2018-10-22] MEDS: CEFEPIME 1GM/50 ML (PMX) 50 ML IVPB SCH (08:24)
[2018-10-22] MEDS: AZITHROMYCIN 250 MG TAB PO SCH (08:24)
[2018-10-22] MEDS: HYDROCHLOROTHIAZIDE 25 MG TAB PO SCH (08:25)
[2018-10-22] MEDS: ENOXAPARIN 40 MG/0.4 ML SYG SC SCH (08:32)
[2018-10-22] MEDS: ARFORMOTEROL TARTRATE 15MCG/2 ML AMP INH SCH (09:00)
[2018-10-22] MEDS: TIOTROPIUM 18 MCG CAPSULE INHA DEV INH SCH (09:25)
[2018-10-22] MEDS: 1/2 NS + KCL 20 MEQ 1,000 ML IV SCH (09:27)
[2018-10-22] MEDS: GUAIFENESIN/DM 5ML CUP PO PRN (09:39)
[2018-10-22] MEDS: BUDESONIDE (NEB) 0.5MG/2ML AMP INH SCH (09:57)
--- NOTE | 2018-10-22 16:43 | CONS ---
DATE OF ADMISSION: 10/17/2018 DATE OF CONSULTATION: REASON FOR CONSULTATION: Shortness of breath. Thank you, Dr. Canales, for this consultation. HISTORY OF PRESENT ILLNESS: This is a pleasant 68-year-old gentleman with a history of COPD, who pre sents with several day history of increasing shortness of breath, cough, wheezing and dyspnea. He is normally followed by a group leader at the [facility] ([facility] States he is on Advair and Spiriva as an outpatient with p.r.n. nebulizer therapy. Since admission, the patient states his breathing has impr faina with bronchodilator treatment and antibiotics, currently on IV antibiotics and steroids. PAST MEDICAL HISTORY: COPD, previous 2 packs per day, quit smoking 4 years ago. MEDICATIONS: Per chart. ALLERGIES: NONE. SOCIAL HISTORY: Ex-smoker, no alcohol, no history of drug use. FAMILY HISTORY: Noncontributory. SYSTEMS REVIEW: A 12-point review of systems was negative other than that mentioned above. PHYSICAL EXAMINATION: GENERAL: Well-nourished, well-developed gentleman, comfortable at rest, no acute distress. VITAL SIGNS: Currently afebrile, pulse is 60, blood pressure 142/74, O2 saturation 96% on 3 L nasal cannula. NECK: Supple. No JVD or lymphadenopathy. CARDIAC: S1, S2, no added sounds or murmurs. CHEST: Diminished air entry bilaterally. ABDOMEN: Soft, nontender. No guarding or rebound. EXTREMITIES: No cyanosis, clubbing, edema. NEUROLOGIC: Grossly intact. No focal deficits. LABORATORY DATA: White count 8.1, hemoglobin 13.6. Chemistry within normal limits. IMPRESSION AND PLAN: 1. Chronic obstructive pulmonary disease with acute exacerbation. 2. 6 mm pulmonary nodule, questionable significance. The patient can likely be discharged home totonsil hospital. Continue on outpatient Spiriva and Advair. Continue followup with his outpatient group leader. I have also given him my office details and he can follow up with me if necessary. Dictated By: DELVIS PATRICK MD SV/ANTONIA Conf#: [id number] DID#: [id number] CC: SAMEERA CANALES MD;*EndCC*
--- NOTE | 2018-10-22 16:49 | PDOCDIS ---
Discharge Instructions CONDITION [id number] Patient Condition: [id number] Stable HOME CARE INSTRUCTIONS: [id number] Diet Instructions: [id number] ACTIVITY: [id number] Activity Restrictions: [id number] Slowly Increase Activity Rest between Activity Avoid heavy lifting Do not operate Machinery Do not operate Power Tool Avoid Heavy Housework Keep Limb Elevated [id number] Bathing Restrictions: [id number] Sponge Bath FOLLOW UP/APPOINTMENTS Follow-up Plan FU W/ PMD X 1 WEEK FU W/Pulmonary as recommended x 1 week Call 911 or go to the nearest hospital if symptoms worsen- patient verbalized understanding discharge instructions Plan Dr Santamaria/staff DOV BURROWS Oct 22, 2018 16:49
[2018-10-22] MEDS ORDERED: LEVO500T48 PO (17:27)
--- NOTE | 2018-10-22 17:30 | DS ---
Date/Time of Note Date/Time of Note DATE: 10/22/18 TIME: 17:30 Discharge Summary Admission/Discharge Info Admit Date/Time Oct 17, 2018 at 18:49 Discharge Date/Time Home Meds Active Scripts Levofloxacin* (Levaquin*) 500 Mg Tablet, 500 MG PO DAILY for 7 Days, TAB Prov:TALARADHA NICHOLSONBIR 10/22/18 Reported Medications Atenolol* (Atenolol*) 50 Mg Tablet, 50 MG PO DAILY, #30 TAB 10/17/18 Losartan Potassium* (Losartan Potassium*) 100 Mg Tablet, 100 MG PO DAILY, TAB 10/17/18 Salmeterol Xinaf-Fluticasone* (Advair*) 500/50 Diskus Inhaler, 1 INH INHALATION BID, #1 INHALER 10/17/18 Umeclidinium [place] (Incruse Ellipta) 62.5 Mcg Blst.w.dev, 62.5 MCG IH DAILY 10/17/18 Omeprazole* (Omeprazole*) 40 Mg Capsule.dr, 40 MG PO DAILY, #30 CAP 10/17/18 Levothyroxine Sodium* (Levothyroxine Sodium*) 125 Mcg Tablet, 125 MCG PO BEFORE BREAKFAST, #30 TAB 10/17/18 Hydrochlorothiazide* (Hydrochlorothiazide*) 25 Mg Tab, 25 MG PO DAILY, #30 TAB 10/17/18 Discontinued Reported Medications Zolpidem Tartrate* (Zolpidem Tartrate*) 10 Mg Tablet, 10 MG PO QHS PRN for INSOMNIA, #30 TAB 11/11/17 Hydrochlorothiazide* (Hydrochlorothiazide*) 25 Mg Tab, 25 MG PO DAILY, #30 TAB 11/11/17 Salmeterol Xinaf-Fluticasone* (Advair*) 500/50 Diskus Inhaler, 1 INH INHALATION BID, #1 INHALER 11/11/17 Losartan Potassium* (Losartan Potassium*) 100 Mg Tablet, 100 MG PO DAILY, TAB 11/11/17 Levothyroxine Sodium* (Levoxyl*) 150 Mcg Tablet, 150 MCG PO BEFORE BREAKFAST, #30 TAB 11/11/17 Discontinued Scripts Albuterol Sulfate* (Albuterol Sulfate* Neb) 0.083%-3 Ml Neb, 2.5 MG NEB Q4 PRN for SHORTNESS OF BREATH, #30 EA Prov:BRISA ARMANDO DO 11/11/17 Follow-up Plan FU W/ PMD X 1 WEEK FU W/Pulmonary as recommended x 1 week Call 911 or go to the nearest hospital if symptoms worsen- patient verbalized understanding discharge instructions Plan dw Dr Santamaria/staff Primary Care Provider Not On Staff Doctor Pending Labs Laboratory Tests Test 10/21/18 21:20 10/22/18 02:32 10/22/18 07:49 10/22/18 11:54 Bedside 230 199 189 234 Glucose mg/dL (70-220) mg/dL (70-220) mg/dL (70-220) mg/dL (70-220) Test 10/22/18 17:04 Bedside 189 Glucose mg/dL (70-220) DOV BURROWS Oct 22, 2018 17:30
--- NOTE | 2018-10-22 17:46 | CONS ---
Assessment/Plan Assessment/Plan Hospital Course (Demo Recall) ID PROGRESS NOTE CURRENT ABX: DAY # => Azith + Cefepime 24H INTERVAL SUMMARY * Rounded earlier prior to DC * VSS, no fevers * Microbiology: All cultures have been negative * CT of the chest on admission revealed no pulmonary embolism moderate to severe emphysematous changes right lower lobe infectious or inflammatory bronchiolitis. Patchy consolidative opacities in the left lower lobe suspicious for pneumonia. 6 mm nodule in the right lower lobe. PHYSICAL EXAMINATION: GENERAL: Afebrile, VSS HEENT: AT, NC, anicteric NECK: Grossly normal CHEST: Equal chest rise bilaterally = without dyspnea HEART: Pulse RRR ABDOMEN: Soft / ND EXTREMITIES: Warm, SKIN: No rash, no diaphoresis ID ASSESSMENT 68 yo M admit with: 1. Acute hypoxemic respiratory failure = O2 via NC = Improved 2. Pneumonia 3. Pulmonary nodule rule out malignancy 4. Thyroid cancer with reported lung metastasis status post thyroidectomy and radiation therapy 5. COPD ABX ALLERGIES: KNDA INVASIVES: PIV CURRENT ABX: DAY # => Azith + Cefepime ID RECOMMENDATIONS/PLAN: 1. Pt seen prior to DC pending 2. DC per primary plan of care . Consultation Date/Type/Reason Admit Date/Time Oct 17, 2018 at 18:49 Initial Consult Date Date/Time of Note DATE: 10/22/18 TIME: 17:45 Exam/Review of Systems Exam Vitals Vital Signs Date Temp Pulse Resp B/P (MAP) Pulse Ox O2 O2 Flow FiO2 Time Delivery Rate 10/22/18 77 20 95 Nasal 3.0 16:54 Cannula 10/22/18 97.6 145/75 15:22 (98) Intake and Output 10/21/18 10/21/18 10/22/18 1515:00 23:00 07:00 IntakeIntake Total 700 ml 1000 ml BalanceBalance 700 ml 1000 ml Results Result Diagram: 10/21/18 0729 10/21/18 0729 Results 24hrs Laboratory Tests Test 10/21/18 21:20 10/22/18 02:32 10/22/18 07:49 10/22/18 11:54 Bedside Glucose 230 H 199 189 234 H Test 10/22/18 17:04 Bedside Glucose 189 Medications Medication Current Medications Ipratropium [place] (Atrovent 0.02% (Neb)) 0.5 mg Q4H RESP THERAPY N Last administered on 10/22/18 16:53; Admin Dose 0.5 MG; Start 10/18/18 at 05:00 Albuterol/ Ipratropium (Duoneb) 3 ml Q4H RESP THERAPY PRN HHN SHORTNESS OF BREATH; Start 10/18/18 at 03:00 Enoxaparin Sodium (Lovenox) 40 mg DAILY SC Last administered on 10/22/18 08:32; Admin Dose 40 MG; Start 10/18/18 at 09:00 Potassium Chloride/Sodium Chloride 1,000 ml @ 50 mls/hr Q20H IV Last administered on 10/22/18 09:27; Admin Dose 50 MLS/HR; Start 10/18/18 at 03:00 Methylprednisolone Sodium Succinate (Solu-Medrol) 40 mg Q6 IV Last administered on 10/22/18 17:06; Admin Dose 40 MG; Start 10/18/18 at 06:00 Levothyroxine Sodium (Synthroid) 125 mcg DAILY@06 PO Last administered on 10/22/18 06:38; Admin Dose 125 MCG; Start 10/19/18 at 06:00 Atenolol (Tenormin) 50 mg DAILY PO Last administered on 10/22/18 08:24; Admin Dose 50 MG; Start 10/18/18 at 10:00 Hydrochlorothiazide (Hydrochlorothiazide) 25 mg DAILY PO Last administered on 10/22/18 08:25; Admin Dose 25 MG; Start 10/18/18 at 10:00 Losartan Potassium (Cozaar) 100 mg DAILY PO Last administered on 10/22/18 08:24; Admin Dose 100 MG; Start 10/18/18 at 10:00 Guaifenesin/ Dextromethorphan (Robitussin Dm Liquid Cup) 10 ml Q4H PRN PO COUGH Last administered on 10/22/18 09:39; Admin Dose 10 ML; Start 10/18/18 at 13:30 Tiotropium [place] (Spiriva) 1 inh DAILY INH Last administered on 10/22/18 09:25; Admin Dose 1 INH; Start 10/18/18 at 14:30 Arformoterol Tartrate (Brovana (Neb)) 2 ml BID RESP THERAPY INH Last administered on 2/15/19at 19:36; Admin Dose 2 ML; Start 10/18/18 at 20:00 Budesonide (Pulmicort (Neb)) 0.5 mg Q12H RESP THERAPY INH Last administered on 10/22/18at 09:57; Admin Dose 0.5 MG; Start 10/18/18 at 20:00 Cefepime HCl 50 ml @ 100 mls/hr Q12 IVPB Last administered on 10/22/18at 08:24; Admin Dose 100 MLS/HR; Start 10/18/18 at 15:30 Pantoprazole (Protonix Tab) 40 mg DAILY@06 PO Last administered on 10/22/18at 06:38; Admin Dose 40 MG; Start 10/19/18 at 06:00 Azithromycin (Zithromax) 500 mg DAILY PO Last administered on 10/22/18 08:24; Admin Dose 500 MG; Start 10/19/18 at 12:30 Insulin Aspart (Novolog Insulin Pen) NOVOLOG *MILD* ALGORITHM WITH MEALS BEDTIME SC Last administered on 10/22/18at 17:13; Admin Dose 2 UNIT; Start 10/19/18 at 17:55 Miscellaneous Information 1 ea NOTE XX ; Start 10/19/18 at 13:00 Glucose (Glutose) 15 gm Q15M PRN PO DECREASED GLUCOSE; Start 10/19/18 at 13:00 Glucose (Glutose) 22.5 gm Q15M PRN PO DECREASED GLUCOSE; Start 10/19/18 at 13:00 Dextrose (D50w Syringe) 25 ml Q15M PRN IV DECREASED GLUCOSE; Start 10/19/18 at 13:00 Dextrose (D50w Syringe) 50 ml Q15M PRN IV DECREASED GLUCOSE; Start 10/19/18 at 13:00 Glucagon (Glucagen) 1 mg Q15M PRN IM DECREASED GLUCOSE; Start 10/19/18 at 13:00 Glucose (Glutose) 15 gm Q15M PRN BUCCAL DECREASED GLUCOSE; Start 10/19/18 at 13:00 Insulin Glargine (Lantus) 10 units DAILY@2000 SC Last administered on 10/21/18at 22:36; Admin Dose 10 UNITS; Start 10/20/18 at 20:00 Amlodipine Besylate (Norvasc) 5 mg DAILY@2100 PO ; Start 10/22/18 at 21:00 Hydralazine HCl (Apresoline) 10 mg Q4H PRN IV ELEVATED SYSTOLIC BP Last administered on 10/22/18at 03:03; Admin Dose 10 MG; Start 10/22/18 at 03:00 ALISIA RENEE NP Oct 22, 2018 17:45
[2018-10-22] MEDS ORDERED: AMLODIPINE 5 MG TAB PO SCH (21:00)
== END 2018-10-22 19:09 | disposition home or self-care (01) | DRG 871 ==
LOC: E/R 16:16 → TEL 18:49 → UNDODISIN 10-22 18:30
PROVIDERS: ADMIT Internal Medicine; ATTEND Internal Medicine
PROC: 5A09357 Assistance with Respiratory Ventilation, Less than 24 Consecutive Hours, Continuous Positive Airway Pressure (ICD-10-PCS; principal; 2018-10-17)
PROC: 4A033R1 Measurement of Arterial Saturation, Peripheral, Percutaneous Approach (ICD-10-PCS; 2018-10-17)
DX: A41.9 Sepsis, unspecified organism (principal); J96.01 Acute respiratory failure with hypoxia; J18.1 Lobar pneumonia, unspecified organism; J44.1 Chronic obstructive pulmonary disease with (acute) exacerbation; C78.00 Secondary malignant neoplasm of unspecified lung; J44.0 Chronic obstructive pulmonary disease with (acute) lower respiratory infection; R65.20 Severe sepsis without septic shock; C73 Malignant neoplasm of thyroid gland; I10 Essential (primary) hypertension; E89.0 Postprocedural hypothyroidism; E11.9 Type 2 diabetes mellitus without complications; Z87.891 Personal history of nicotine dependence; Z92.3 Personal history of irradiation
CPT/HCPCS: 36415; 36600; 71045; 71275; 80048; 80053; 81001; 82803; 82962; 83036; 83605; 83735; 84436; 84443; 84479; 84484; 85025; 85610; 85730; 87040; 87081; 87086; 87400; 93005; 94640; 94644; 94660; 94664; 96365; 96375; C9113; J0360; J0692; J1650; J1815; J1956; J2920; J2930; J3370; J3480; J7030; Q9967